=== PATIENT | female | born 1995 | race Caucasian/White ===

== ENCOUNTER 2019-12-02 22:57 | Emergency (ER) | payer SELFPAY ==
[2019-12-02 23:00] VITALS: BP 182/112; PULSE 70; RESP 18; TEMP 36.5; O2SAT 99; BMI 37.6
--- NOTE | 2019-12-02 23:06 | ECG_ITS ---
Measurements Intervals [place] Rate: 80 P: 46 NV: 148 QRS: -9 QRSD: 113 T: 16 QT: 366 QTc: 423 SINUS RHYTHM WITH SINUS ARRHYTHMIA LOW QRS VOLTAGE IN PRECORDIAL LEADS [QRS DEFLECTION < 1.0 mV IN CHEST LEADS] INCOMPLETE RIGHT BUNDLE BRANCH BLOCK [90+ ms QRS DURATION, TERMINAL R IN V1/V2, 4 MODERATE VOLTAGE CRITERIA FOR LVH, CONSIDER NORMAL VARIANT [MEETS CRITERIA IN ONE ONE OF: R(aVL), S(V1), R(V5), R(V5/V6)+S(V1)] POSSIBLE ANTEROSEPTAL MYOCARDIAL INFARCTION , OF INDETERMINATE AGE [30 ms Q WAVE Compared to ECG 04/28/2017 19:25:50 Myocardial infarct finding now present Electronically Signed On 12-03-2019 22:15:43 GROCERY DELIVERER by Talya Chaves M.D. [id number]
--- NOTE | 2019-12-02 23:08 | ED_ITS ---
Entered by Sabrina lEy, acting as scribe for Leonardo German MD Dec 02, 2019 22:57 HPI - Dizziness General: Chief Complaint: Dizziness Stated Complaint: dizziness Time Seen by Provider: 12/02/19 23:07 Source: patient Mode of arrival: ambulatory Limitations: no limitations History of Present Illness: HPI Narrative: 24 yo f came to the er for dizziness and a syncope episode. Onset was today. Pt states that she has some mild abd pain as well. Pt said that she is still feeling dizzy. She said that she started feeling dizzy and then passed out. MD elicited complaint: dizziness and other (syncope and abd pain) Onset (ago): day(s) (today) Timing: sudden onset Severity: mild Description: lightheadedness History of similar symptoms: No Exacerbating factors: nothing Relieving factors: nothing Associated symptoms: Reports no associated symptoms and cough; Denies chest pain or chills Associated neuro symptoms: Reports no associated symptoms Review of Systems General: Reports: other (negative unless marked) Const: Denies: fever, chills, body aches or change in appetite Eyes: Denies: blurry vision or eye discomfort ENMT: Denies: throat pain or dental pain Card: Denies: chest pain Resp: Reports: non-productive cough GI: Reports: abdominal pain : Denies: painful urination Musc: Denies: neck pain or back pain Skin/Breast: Denies: rash Neuro: Reports: dizziness Psych: Denies: depression Luke/Lymph: Denies: easy bruising All/Imm: Denies: hives PFSH ED PFSH: Statuses (acute, chronic, etc) shown below reflect problem list status as previously entered and may not be historically accurate Social History Smoking and tobacco status: current every day smoker Physical Exam Const: COMMON NORMALS: no apparent distress, oriented x3 and healthy appearing HENMT: COMMON NORMALS: normocephalic and head/scalp atraumatic HEAD & SCALP: normocephalic and atraumatic Eye: COMMON NORMALS: PERRL and EOMs intact bilaterally PUPIL: Yes PERRL Neck/C-Spine: COMMON NORMALS: full ROM and supple Chest: COMMONS NORMALS: inspection of chest normal and palpation of chest normal Resp: COMMON NORMALS: normal respiratory effort, no retractions, no use of accessory muscles and clear to auscultation bilaterally AUSCULTATION: clear to auscultation bilaterally Cardio: COMMON NORMALS: regular rate, regular rhythm and no murmurs RATE: regular rate RHYTHM: regular rhythm GI: COMMON NORMALS: normal to inspection, nondistended, normoactive bowel sounds, soft to palpation, non-tender and no masses PALPATION: Yes soft Extremity: COMMON NORMALS: normal to inspection and full ROM OTHER: renderness over left shoulder and pain with movement Neuro: COMMON NORMALS: oriented x3, moves all extremities and no focal motor deficits Psych: COMMON NORMALS: mental status grossly normal, thought process normal and cooperative THOUGHT PROCESS: normal thought process Skin: COMMON NORMALS: no rashes or lesions noted and no wounds GENERAL SKIN EXAM: no rashes or lesions noted Course Vital Signs: Vital signs: Vital Signs Temperature 97.7 F 12/02/19 23:00 Pulse Rate 81 12/03/19 02:26 Respiratory Rate 16 12/03/19 02:26 Blood Pressure 135/78 12/03/19 02:26 Pulse Oximetry 100 12/03/19 02:26 MDM - Dizziness MDM Narrative: Medical decision making narrative: Patient presents here with multiple complaints. Patient is shoulder pain along with chest pain and abdominal pain.. Patient also has high blood pressure. Her blood pressure here is improved. CT scan of her abdomen is negative. Initial and repeat troponin are negative as well. She has no signs of pulmonary embolism. Patient is stable for discharge and will start HCTZ. She is to follow-up with her primary care doctor in 3 to 5 days return if worsening. Lab Data: Labs: Lab Results 12/02/19 12/02/19 12/02/19 Range/Units 23:26 23:26 23:26 WBC 7.8 (4.0-10.0) 10^3/ uL RBC 4.22 (4.1-5.3) 10^6/u L Hgb 10.8 L (11.5-15.3) g/dL Hct 34.6 L (37.0-47.0) % MCV 82.0 (81-99) fL MCH 25.6 L (28.0-34.0) pg MCHC 31.2 (30.0-36.0) g/dL RDW 12.6 (12.1-15.1) % Plt Count 340 (130-400) 10^3/c mm MPV 9.7 (7.4-10.4) fL Neut % (Auto) 65.8 % Lymph % (Auto) 27.5 % [place] % (Auto) 5.2 % Eos % (Auto) 1.3 % Baso % (Auto) 0.1 % Neut # (Auto) 5.2 (1.8-7.7) 10^3/u L Lymph # (Auto) 2.2 (0.8-4.8) 10^3/u L [place] # (Auto) 0.4 (0.2-0.9) 10^3/u L Eos # (Auto) 0.1 (0.0-0.8) 10^3/u L Baso # (Auto) 0.0 (0.0-0.1) 10^3/u L Nucleated RBC % (a uto) 0 % Nucleated RBCs # 0.0 /100WBC Sodium 137 (136-145) mmol/L Potassium 3.7 (3.5-5.1) mmol/L Chloride 102 (98-107) mmol/L Carbon Dioxide 24 (22-29) mmol/L Anion Gap 14.7 (5-19) BUN 12 (6-20) mg/dL Creatinine 0.8 (0.5-0.9) mg/dL GFR Calculation 86.7 L (90-130) mL/min Glucose 96 (65-115) mg/dL Calculated Osmolal ity 280 L (285-295) mOsm/k g Calcium 9.3 (8.5-10.5) mg/dL Troponin T Baselin e 6 (0-10) ng/mL Troponin T 120 Min [place] (0-10) ng/mL Delta Troponin T (0-10) ABS# TSH 1.72 (0.27-4.20) uIU/ mL HCG, Qual (Negative) 12/02/19 12/03/19 Range/Units 23:55 01:03 WBC (4.0-10.0) 10^3/ uL RBC (4.1-5.3) 10^6/u L Hgb (11.5-15.3) g/dL Hct (37.0-47.0) % MCV (81-99) fL MCH (28.0-34.0) pg MCHC (30.0-36.0) g/dL RDW (12.1-15.1) % Plt Count (130-400) 10^3/c mm MPV (7.4-10.4) fL Neut % (Auto) % Lymph % (Auto) % [place] % (Auto) % Eos % (Auto) % Baso % (Auto) % Neut # (Auto) (1.8-7.7) 10^3/u L Lymph # (Auto) (0.8-4.8) 10^3/u L [place] # (Auto) (0.2-0.9) 10^3/u L Eos # (Auto) (0.0-0.8) 10^3/u L Baso # (Auto) (0.0-0.1) 10^3/u L Nucleated RBC % (a uto) % Nucleated RBCs # /100WBC Sodium (136-145) mmol/L Potassium (3.5-5.1) mmol/L Chloride (98-107) mmol/L Carbon Dioxide (22-29) mmol/L Anion Gap (5-19) BUN (6-20) mg/dL Creatinine (0.5-0.9) mg/dL GFR Calculation (90-130) mL/min Glucose (65-115) mg/dL Calculated Osmolal ity (285-295) mOsm/k g Calcium (8.5-10.5) mg/dL Troponin T Baselin e (0-10) ng/mL Troponin T 120 Min [place] 6.00 (0-10) ng/mL Delta Troponin T 0 (0-10) ABS# TSH (0.27-4.20) uIU/ mL HCG, Qual Negative (Negative) Imaging Data^: xr left shoulder: Attestation: I personally reviewed and interpreted this imaging study as follows: My impression: no acute abnormality EKG Data^: EKG 1: Attestation: I personally reviewed and interpreted this EKG as follows: EKG interpretation date: 12/02/19 EKG interpretation time: 23:25 Interpretation: nsr hr [address] or t wave abnormalities qrs 113 [id number] EKG 2: Attestation: I personally reviewed and interpreted this EKG as follows: EKG interpretation date: 12/03/19 EKG interpretation time: 00:59 Interpretation: nsr hr [address] or t wave abnormalities qrs 118 qtc 410 Discharge Plan Discharge Patient Disposition: Home, Self-Care Clinical Impression: Dizziness Hypertension Qualifiers: Hypertension type: essential hypertension Qualified Code(s): I10 - Essential (primary) hypertension Abdominal pain Qualifiers: Abdominal location: generalized Qualified Code(s): R10.84 - Generalized abdominal pain Condition: Stable Prescriptions: New hydrochlorothiazide 25 mg tablet 25 mg PO DAILY Qty: 30 RF: 1 No Action No Known Home Medications RF: 0 Discharge Orders: Discharge Order (Routine); Ordered 12/03/19 Ordered By: Leonardo German Discharge Diet: Advance as tolerated Discharge Activity: Resume usual activity Patient Instructions: Abdominal Pain (ED), Hypertension (ED) Discharge Date/Time: 12/03/19 02:26 Coding Level of Care Code ED Pediatric Urologist for Chg Fwd Exam Problem Focused The documentation recorded by the Solis morse Stephanie Lyn, accurately reflects the service I personally performed and the decisions made by Maxi laguna Korby, MD Dec 02, 2019 22:57
--- NOTE | 2019-12-02 23:12 | XR_ITS ---
WS: [id number] Left shoulder, 3 views, 12/02/2019 Clinical Data: pain Comparison: None. Findings: There is an anterior subcoracoid dislocation of the left humeral head onto the scapula. No fractures are seen. The AC joints intact. There is a monitor lead over the left chest XR/XR shoulder LT min 2V* [id number] Impression: Anterior subcoracoid dislocation of left humeral head.
[2019-12-02 23:20] VITALS: RESP 16
[2019-12-02] MEDS: morphine 4 mg/mL SDV 1 mL IVP (23:20)
[2019-12-02 23:23] VITALS: PULSE 87; RESP 16; O2SAT 99
--- NOTE | 2019-12-02 23:25 | PC.NURSE ---
PATIENT STATES THAT AROUND 1999 TONIGHT SHE STARTED FEELING LIGHTHEADED. PATIENT STATES HER LEFT SHOULDER AND LEFT LOWER QUADRANT HURT 05/05.
[2019-12-02 23:33] LABS: Basophils % 0.1 %; Eosinophils # 0.1 10^3/uL (0.0-0.8); Eosinophils % 1.3 %; Hematocrit 34.6 % (37.0-47.0); Hemoglobin 10.8 g/dL (11.5-15.3); Lymphocytes # 2.2 10^3/uL (0.8-4.8); Lymphocytes % 27.5 %; Mean Corpuscular HGB Conc 31.2 g/dL (30.0-36.0); Mean Corpuscular Hemoglobin 25.6 pg (28.0-34.0); Mean Platelet Volume 9.7 fL (7.4-10.4); Monocytes # 0.4 10^3/uL (0.2-0.9); Monocytes % 5.2 %; Neutrophils # 5.2 10^3/uL (1.8-7.7); Neutrophils % 65.8 %; Nucleated Red Blood Cells % 0 %; Platelet Count 340 10^3/cmm (130-400); Red Blood Count 4.22 10^6/uL (4.1-5.3); Red Cell Distribution Width 12.6 % (12.1-15.1); White Blood Count 7.8 10^3/uL (4.0-10.0)
[2019-12-02 23:50] LABS: Troponin(5th) Baseline 6 ng/mL (0-10)
[2019-12-02 23:58] LABS: Anion Gap 14.7 (5-19); Blood Urea Nitrogen 12 mg/dL (6-20); Calcium 9.3 mg/dL (8.5-10.5); Carbon Dioxide 24 mmol/L (22-29); Chloride 102 mmol/L (98-107); Glomerular Filtration Rate 86.7 mL/min (90-130); Glucose 96 mg/dL (65-115); Osmolality Calculated 280 mOsm/kg (285-295); Potassium 3.7 mmol/L (3.5-5.1); Sodium 137 mmol/L (136-145); Thyroid Stimulating Hormone 1.72 uIU/mL (0.27-4.20)
--- NOTE | 2019-12-03 00:03 | PC.NURSE ---
XRAY IN ROOM
[2019-12-03] MEDS: hyDRALAzine 20 mg/mL INJ 1 mL 10 MG IVP (00:09)
[2019-12-03 00:13] LABS: HCG Qualitative Urine. Negative (Negative)
[2019-12-03 00:25] VITALS: BP 155/99; PULSE 98; O2SAT 99
--- NOTE | 2019-12-03 00:34 | CTR_ITS ---
PROCEDURE INFORMATION: Exam: CT Abdomen And Pelvis With Contrast Exam date and time: 12/03/2019 1:31 AM Age: 24 years old Clinical indication: Abdominal pain; Acute; Additional info: Abd pain TECHNIQUE: Imaging protocol: Computed tomography of the abdomen and pelvis with intravenous contrast. Total DLP: 1740.83 mGy-cm Radiation optimization: All CT scans at this facility use at least one of these dose optimization techniques: automated exposure control; mA and/or kV adjustment per patient size (includes targeted exams where dose is matched to clinical indication); or iterative reconstruction. Contrast material: OMNI 300; Contrast volume: 95 ml; Contrast route: 20G; COMPARISON: CT abdomen pelvis w con* [id number] 06/24/2016 4:14 PM FINDINGS: Liver: Normal. No mass. Gallbladder and bile ducts: Normal. No calcified stones. No ductal dilation. Pancreas: Normal. No ductal dilation. Spleen: Normal. No splenomegaly. Adrenals: Normal. No mass. Kidneys and ureters: Normal. No hydronephrosis. Stomach and bowel: Nondilated fluid-filled loops of small bowel may represent mild ileus. Appendix: The appendix is visualized and is normal in configuration. Intraperitoneal space: Unremarkable. No free air. No significant fluid collection. Vasculature: Unremarkable. No abdominal aortic aneurysm. Lymph nodes: Unremarkable. No enlarged lymph nodes. Bladder: Unremarkable as visualized. Reproductive: The uterus is retroflexed. Bones/joints: Unremarkable. No acute fracture. Soft tissues: Unremarkable. CT/CT abdomen pelvis w con* [id number] IMPRESSION: 1. There are no acute abdominal findings 2. Nondilated fluid-filled loops of small bowel could represent mild ileus 3. Normal appendix Radiation Dose CTDIVOL = (mGy): DLP = 1740.83 (mGy-cm)
[2019-12-03 00:42] VITALS: BP 153/97; PULSE 94; RESP 16; O2SAT 98
--- NOTE | 2019-12-03 01:06 | ECG_ITS ---
Measurements Intervals [place] Rate: 82 P: 47 IN: 144 QRS: -5 QRSD: 118 T: 19 QT: 372 QTc: 435 SINUS RHYTHM INCOMPLETE RIGHT BUNDLE BRANCH BLOCK [90+ ms QRS DURATION, TERMINAL R IN V1/V2, 40+ ms S IN I/aVL/V4/V5/V6] MINIMAL VOLTAGE CRITERIA FOR LVH, CONSIDER NORMAL VARIANT [MEETS CRITERIA IN ONE OF: R(aVL), S(V1), R(V5), R(V5/V6)+S(V1)] POSSIBLE ANTERIOR MYOCARDIAL INFARCTION , PROBABLY OLD [30 ms Q WAVE IN V3/V4, OR R < 0.2 mV IN V4] Compared to ECG 04/28/2017 19:25:50 Myocardial infarct finding now present Sinus arrhythmia no longer present Electronically Signed On 12-03-2019 22:18:27 REORDERING CLERK by Talya Chaves M.D. [id number]
--- NOTE | 2019-12-03 01:25 | PC.NURSE ---
patient to CT
[2019-12-03 01:34] LABS: Troponin 5 2HR Delta 0 ABS# (0-10)
--- NOTE | 2019-12-03 01:40 | PC.NURSE ---
patient back from CT
[2019-12-03 01:44] VITALS: RESP 16; O2SAT 99
[2019-12-03] MEDS: HYDROmorphone 1 mg/mL INJ 1 mL IVP (01:44)
[2019-12-03] MEDS: ondansetron 2 mg/ML SDV 2 mL 4 MG IVP (01:45)
[2019-12-03] MEDS: iohexol 300 mg/mL 100 mL Btl IV (01:46)
[2019-12-03 01:48] VITALS: BP 144/96; PULSE 92; RESP 16; O2SAT 99
[2019-12-03 02:26] VITALS: BP 135/78; PULSE 81; RESP 16; O2SAT 100
== END 2019-12-03 02:26 | disposition home or self-care (01) ==
PROVIDERS: Emergency Provider Emergency Medicine
DX: R42 Dizziness and giddiness (principal); I10 Essential (primary) hypertension; R10.84 Generalized abdominal pain; F17.210 Nicotine dependence, cigarettes, uncomplicated
CPT/HCPCS: 73030; 74177; 80048; 81025; 84443; 84484; 85025; 93005; 96374; 96375; 96376; 99283; 99284; J0360; J1170; J2270; J2405; Q9967

== ENCOUNTER → 2020-01-19 14:47 | Outpatient (BNVA) | payer MEDICAID, SELFPAY | PROVIDERS: Visit Provider Nurse Practitioner Family | DX: R05 Cough (principal) | CPT/HCPCS: 87400 ==

== ENCOUNTER → 2020-02-28 15:22 | Outpatient (BNVA) | payer MEDICAID, SELFPAY | PROVIDERS: Visit Provider Nurse Practitioner Family | DX: M25.572 Pain in left ankle and joints of left foot (principal) | CPT/HCPCS: 73610 ==

== ENCOUNTER → 2021-08-17 09:11 | Outpatient (BNVA) | payer MEDICAID, SELFPAY | PROVIDERS: Visit Provider Obstetrics & Gynecology | DX: R10.30 Lower abdominal pain, unspecified (principal); N89.8 Other specified noninflammatory disorders of vagina | CPT/HCPCS: 83036; 83525; 84443; 85025; 87070; 87077; 87184; 87205; 87481; 87491; 87512; 87591; 87661; 87798; 87799 ==

== ENCOUNTER → 2021-08-27 11:03 | Outpatient (BNVA) | payer MEDICAID, SELFPAY | PROVIDERS: PCP Nurse Practitioner Family; Visit Provider Obstetrics & Gynecology | DX: R10.2 Pelvic and perineal pain (principal); N92.6 Irregular menstruation, unspecified | CPT/HCPCS: 76830 ==

== ENCOUNTER → 2021-10-29 09:15 | Outpatient (BNVA) | payer MEDICAID, SELFPAY | PROVIDERS: PCP Nurse Practitioner Family; Visit Provider Nurse Practitioner Family | DX: F41.8 Other specified anxiety disorders (principal); E28.2 Polycystic ovarian syndrome; E88.81 Metabolic syndrome and other insulin resistance; I10 Essential (primary) hypertension; R00.2 Palpitations; R53.83 Other fatigue | CPT/HCPCS: 80053; 80061; 82306 ==

== ENCOUNTER 2021-11-24 13:00 | Emergency (ER) | payer MEDICAID, SELFPAY ==
[2021-11-24 13:25] VITALS: BP 152/102; PULSE 69; RESP 16; TEMP 36.7; O2SAT 100
--- NOTE | 2021-11-24 13:44 | XRR_ITS ---
PROCEDURE INFORMATION: Exam: XR Chest Exam date and time: 11/24/2021 1:44 PM Age: 26 years old Clinical indication: Angina pectoris; Patient HX: Chest pain x 1 day; Additional info: Cp TECHNIQUE: Imaging protocol: XR of the chest. Views: 1 view. COMPARISON: CR Chest 1 [place] [id number] 04/28/2017 7:46 PM FINDINGS: Lungs: The lungs are clear. Pleural spaces: Unremarkable. No pleural effusion. No pneumothorax. Heart/Mediastinum: Unremarkable. No cardiomegaly. Bones/joints: Unremarkable. XR/XR chest 1V portable [id number] IMPRESSION: No acute cardiopulmonary abnormality.
--- NOTE | 2021-11-24 13:44 | ECG_ITS ---
[facility] Test Date: 2021-11-24 Pat Name: Kathleen Camilo Department: Room: Gender: Female Staff Pharmacist Hospital: : 1995 Requested By: Chapo Tang Order Number: [id number] Barbra MD: LIZA YUAN Measurements Intervals [place] Rate: 63 P: 44 MD: 139 QRS: 5 QRSD: 106 T: 37 QT: 393 QTc: 403 Interpretive Statements SINUS RHYTHM POSSIBLE RIGHT VENTRICULAR CONDUCTION DELAY [RSR (QR) IN V1/V2] Compared to ECG 12/03/2019 00:59:27 Incomplete right bundle-branch block no longer present Myocardial infarct finding no longer present Electronically Signed On 11-24-2021 17:44:36 ER TECH by LIZA YUAN [id number] f
[2021-11-24 15:45] LABS: Basophils % 0.2 %; Hematocrit 38.6 % (37.0-47.0); Hemoglobin 11.9 g/dL (11.5-15.3); Lymphocytes # 1.3 10^3/uL (0.8-4.8); Mean Corpuscular HGB Conc 30.8 g/dL (30.0-36.0); Mean Corpuscular Hemoglobin 26.8 pg (28.0-34.0); Mean Corpuscular Volume 86.9 fl (81-99); Mean Platelet Volume 9.7 fL (7.4-10.4); Monocytes # 0.3 10^3/uL (0.2-0.9); Monocytes % 4.2 %; Neutrophils % 75.3 %; Nucleated Red Blood Cells % 0 %; Platelet Count 365 10^3/cmm (130-400); Red Blood Count 4.44 10^6/uL (4.1-5.3); White Blood Count 6.6 10^3/uL (4.0-10.0)
[2021-11-24 15:58] LABS: INR 0.94 (0.8-1.2)
[2021-11-24 16:08] LABS: Alanine Aminotransferase 9 U/L (0-33); Albumin Level 4.7 g/dL (3.5-5.2); Alkaline Phosphatase 86 IU/L (35-105); Anion Gap 17.7 (5-19); Aspartate Amino Transferase 5 U/L (0-32); Blood Urea Nitrogen 7 mg/dL (6-20); Calcium 8.8 mg/dL (8.5-10.5); Carbon Dioxide 22 mmol/L (22-29); Chloride 103 mmol/L (98-107); Globulin 3.1 g/dL (1.3-4.6); Glucose 83 mg/dL (65-115); Osmolality Calculated 285 mOsm/kg (285-295); Potassium 3.7 mmol/L (3.5-5.1); Sodium 139 mmol/L (136-145); Total Bilirubin 0.3 mg/dL (0.15-1.2); Total Protein 7.8 g/dL (6.6-8.7)
[2021-11-24 16:13] LABS: Troponin(5th) Baseline 6 ng/L (0-10)
[2021-11-24 16:29] LABS: D Dimer 0.51 ug/mIFEU (0-0.59)
--- NOTE | 2021-11-24 16:30 | ED_ITS ---
HPI - General Adult General: Chief complaint: Chest Pain Stated complaint: Chest Pains Time Seen by Provider: 11/24/21 15:09 History of Present Illness: CC: Chest Pain HPI: This is a [26] yo patient w/ no PMH presenting to the ED complaining of acute sudden onset intermittent sharp chest pain since this AM WITHOUT radiation to the back or shoulders. No associated with shortness of breath, chest pain or dyspnea on exertion. Pain is not tearing in nature and does not radiate to the back. Pain not associated with vomiting or PO intake. Denies any recent sympathomimetic drug use. Patient denies any cough. Denies palpitations, dysphagia, diaphoresis, radiation of pain to bilateral arms, jaw. Denies F/N/V/D. Patient denies any recent immobility, surgery, unilateral leg swelling, or prior PE. Patient denies any orthopnea. Onset: earlier today Duration: ongoing for the last 6 hrs Location: home Severity: mild/moderate Associated symptoms: Reports chest pain; Deny dyspnea, nausea, rash, palpitations or vomiting Review of Systems Const: Denies: fever(s) or chills Eyes: Denies: change in vision ENMT: Denies: mouth pain Card: Reports: chest pain; Denies: palpitations Resp: Denies: dyspnea or non-productive cough GI: Denies: abdominal pain, nausea, vomiting or diarrhea : Denies: dysuria Musc: Denies: extremity pain Skin/Breast: Denies: rash or new lesions Neuro: Denies: weakness in extremities Psych: Reports: other (Normal mood) Luke/Lymph: Denies: easy bruising PFS ED PFSH: Medical History Depression with anxiety Hypertension Metabolic syndrome PCOS (polycystic ovarian syndrome) Surgical History H/O laparoscopy Diagnostic laparoscopy by Dr. Ho on 07/01/18 H/O laparoscopy H/O wrist surgery tendon surgery to left wrist-2018 H/O wrist surgery History of surgical removal of ganglion cyst 11/2018--[facility] Family History Grandfather Cancer Mother Hypertension Social History Smoking and tobacco status: current every day smoker Second hand smoke exposure: Yes Alcohol intake: current Alcohol intake frequency: holidays/special occasions only Caregiver/support person: Yes (family) Lives independently: Yes Household members: children Marital status: Single service: No Current occupational status: employed History of recent travel: No Current gender identity: Female Special beth needs: No Physical Exam Const: COMMON NORMALS: alert HENMT: COMMON NORMALS: atraumatic HEAD & SCALP: atraumatic MOUTH: moist mucous membranes not abnormal Eye: COMMON NORMALS: EOMs intact bilaterally and conjunctivae normal CONJUNCTIVA: Yes conjunctivae normal Neck/C-Spine: COMMON NORMALS: full ROM and supple Resp: COMMON NORMALS: normal respiratory effort and clear to auscultation bilaterally AUSCULTATION: clear to auscultation bilaterally Cardio: COMMON NORMALS: regular rate RATE: regular rate GI: COMMON NORMALS: Soft to palpation and non-tender PALPATION: Yes Soft to palpation Extremity: COMMON NORMALS: full ROM Neuro: SENSORIUM/ORIENTATION: Yes alert MOTOR EXAM: No Abnormal motor strength present and Other motor observations present (no focal motor deficits) Psych: COMMON NORMALS: speech normal SPEECH: Yes normal speech MOOD & AFFECT: Yes euthymic mood Course Vital Signs: Vital signs: Vital Signs Temperature 98.0 F 11/24/21 13:25 Pulse Rate 69 11/24/21 13:25 Respiratory Rate 16 11/24/21 13:25 Blood Pressure 152/102 11/24/21 13:25 Pulse Oximetry 100 11/24/21 13:25 MDM - General Adult Medical Decision Making [26]yo patient w/ no PMH presenting to the ED with evaluation of new onset sharp chest pain lasting since this AM HDS, pulse 2+ radially bilaterally, no signs of fluid overload, AAOx3, neuro exam intact. Given History and Exam today I have no suspicion for ACS, Pneumothorax, Pneumonia, Pulmonary Embolus, Tamponade, Aortic Dissection or other emergent problems as a cause for this presentation. Workup: ECG, CXR, CBC, BMP, Troponin Interventions: Tylenol and toradol for pain Findings: ECG: No overt evidence of STEMI, hyperacute T waves, localizable STD or T wave inversions. No evidence of Brugada?s sign, delta wave, epsilon wave, significantly prolonged QTc, or malignant arrhythmia. No Q waves. Other Labs unremarkable for emergent problems. CXR: Without PTX, PNA, or widened mediastinum Last Stress Test: never Last Heart Catheterization: never HEART Score: 0 Dimer wnl [5:00pm] On reassessment, the patient is HDS, no complaints of persistent chest pain in the ED after evaluation. ECG is non-ischemic. Workup today is unremarkable. Doubt ACS/PE or other emergent causes of chest pain. Doubt ACS/PE or other emergent causes of chest pain. No suspicion for aortic dissection given no widened mediastinum, 2+ upper extremity pulses, or tearing pain. No suspicion for PE given no pleuritic chest pain, recent immobilization or surgery hemoptysis, or other VTE risk factors. EKG is non-ischemic. XR normal. Rx: Tylenol PRN pain Disposition: Discharge. Strict return precautions discussed with the patient with full understanding. Advised patient to follow up promptly with a primary care provider in 24-48 hrs if the patient has persistent symptoms. Given return instructions for any crushing/tearing chest pain, focal weakness, syncope or any new or concerning issues. Lab Data : 11/24/21 15:38 11/24/21 15:38 Radiology Impressions Chest X-Ray 11/24/21 13:44 IMPRESSION: No acute cardiopulmonary abnormality. Laboratory Results WBC 6.6 10^3/uL (4.0-10.0) 11/24/21 15:38 RBC 4.44 10^6/uL (4.1-5.3) 11/24/21 15:38 Hgb 11.9 g/dL (11.5-15.3) 11/24/21 15:38 Hct 38.6 % (37.0-47.0) 11/24/21 15:38 MCV 86.9 fl (81-99) 11/24/21 15:38 MCH 26.8 pg (28.0-34.0) L 11/24/21 15:38 MCHC 30.8 g/dL (30.0-36.0) 11/24/21 15:38 RDW 13.0 % (12.1-15.1) 11/24/21 15:38 Plt Count 365 10^3/cmm (130-400) 11/24/21 15:38 MPV 9.7 fL (7.4-10.4) 11/24/21 15:38 Neut % (Auto) 75.3 % 11/24/21 15:38 Lymph % (Auto) 20.0 % 11/24/21 15:38 [place] % (Auto) 4.2 % 11/24/21 15:38 Eos % (Auto) 0.0 % 11/24/21 15:38 Baso % (Auto) 0.2 % 11/24/21 15:38 Neut # (Auto) 5.00 10^3/uL (1.8-7.7) 11/24/21 15:38 Lymph # (Auto) 1.3 10^3/uL (0.8-4.8) 11/24/21 15:38 [place] # (Auto) 0.3 10^3/uL (0.2-0.9) 11/24/21 15:38 Eos # (Auto) 0.0 10^3/uL (0.0-0.8) 11/24/21 15:38 Baso # (Auto) 0.0 10^3/uL (0.0-0.1) 11/24/21 15:38 Nucleated RBC % (auto) 0 % 11/24/21 15:38 Nucleated RBCs # 0.0 /100WBC 11/24/21 15:38 PT 12.80 SECONDS (12.1-14.9) 11/24/21 15:38 INR 0.94 (0.8-1.2) 11/24/21 15:38 D-Dimer 0.51 ug/mIFEU (0-0.59) 11/24/21 15:38 Sodium 139 mmol/L (136-145) 11/24/21 15:38 Potassium 3.7 mmol/L (3.5-5.1) 11/24/21 15:38 Chloride 103 mmol/L (98-107) 11/24/21 15:38 Carbon Dioxide 22 mmol/L (22-29) 11/24/21 15:38 Anion Gap 17.7 (5-19) 11/24/21 15:38 BUN 7 mg/dL (6-20) 11/24/21 15:38 Creatinine 0.6 mg/dL (0.5-0.9) 11/24/21 15:38 GFR Calculation 119.0 mL/min (90-130) 11/24/21 15:38 Glucose 83 mg/dL (65-115) 11/24/21 15:38 Calculated Osmolality 285 mOsm/kg (285-295) 11/24/21 15:38 Calcium 8.8 mg/dL (8.5-10.5) 11/24/21 15:38 Total Bilirubin 0.3 mg/dL (0.15-1.2) 11/24/21 15:38 AST 5 U/L (0-32) 11/24/21 15:38 ALT 9 U/L (0-33) 11/24/21 15:38 Alkaline Phosphatase 86 IU/L (35-105) 11/24/21 15:38 Troponin T Baseline 6 ng/L (0-10) 11/24/21 15:38 Total Protein 7.8 g/dL (6.6-8.7) 11/24/21 15:38 Albumin 4.7 g/dL (3.5-5.2) 11/24/21 15:38 Globulin 3.1 g/dL (1.3-4.6) 11/24/21 15:38 Imaging Data Other Imaging: Radiologist's impression: [address] [address] XRay Report Signed Patient: Kathleen Camilo Unit #: [id number] : 1995 Age/Sex: 26 / F ADM Date: 11/24/21 Loc: ER Room/Bed: Attending Dr: Ordering Provider/Ordering MD: Gianluca Tang , [facility] Date of Service: 11/24/21 Procedure(s): XR chest 1V portable [id number] Accession Number(s): [id number] Report Number: [id number] PROCEDURE INFORMATION: Exam: XR Chest Exam date and time: 11/24/2021 1:44 PM Age: 26 years old Clinical indication: Angina pectoris; Patient HX: Chest pain x 1 day; Additional info: Cp TECHNIQUE: Imaging protocol: XR of the chest. Views: 1 view. COMPARISON: CR Chest 1 [place] [id number] 04/28/2017 7:46 PM FINDINGS: Lungs: The lungs are clear. Pleural spaces: Unremarkable. No pleural effusion. No pneumothorax. Heart/Mediastinum: Unremarkable. No cardiomegaly. Bones/joints: Unremarkable. XR/XR chest 1V portable [id number] IMPRESSION:? No acute cardiopulmonary abnormality. ? Dictated By: Arvin Clark MD Signed By: Arvin Clark MD Signed Date/Time: 11/24/21 1619 DD/ 1344 Discharge Plan Discharge Patient Disposition: Home Clinical Impression: Chest pain Condition: Stable Prescriptions: New acetaminophen 500 mg tablet 500 mg PO Q6H PRN (Reason: pain) 5 Days Qty: 20 0RF No Action ketorolac 10 mg tablet 10 mg PO Q6H PRN0RF doxycycline hyclate 100 mg tablet 100 mg PO BID Qty: 28 0RF venlafaxine 75 mg tablet 75 mg PO DAILY 30 Days Qty: 30 0RF dicyclomine 20 mg tablet 20 mg PO TID Qty: 90 6RF amoxicillin-pot clavulanate [Augmentin] 875-125 mg tablet 1 tab PO BID Qty: 20 0RF cholecalciferol (vitamin D3) 125 mcg (5,000 unit) capsule 125 mcg PO DAILY 90 Days Qty: 90 1RF Discharge Orders: Discharge ED (Routine); Ordered 11/24/21 Ordered By: Danelle Dawson Referrals: Yudith Quezada APN [Primary Care Provider] - Discharge Diet: Advance as tolerated Discharge Activity: Increase activity as tolerated Patient Instructions: Chest Pain (ED) Activity Restrictions/Additional Instructions: Come back to the emergency room if your chest pain worsens, have any fever or chills, worsening shortness of breath, worsening exertional lightheadedness, or any new or concerning complaints. Coding Level of Care Code ED Health Professional for Carlos Murray Exam Comprehensive
[2021-11-24 16:51] VITALS: BP 136/86; PULSE 76; RESP 16; O2SAT 100
[2021-11-24] MEDS: acetaminophen 500 mg Tablet PO (16:51)
[2021-11-24] MEDS: ketorolac 30 mg/mL INJ IVP (16:51)
== END 2021-11-24 16:52 | disposition home or self-care (01) ==
PROVIDERS: Nurse Practitioner Family; Emergency Provider Emergency Medicine; PCP Nurse Practitioner Family
DX: R07.9 Chest pain, unspecified (principal); I10 Essential (primary) hypertension; F17.210 Nicotine dependence, cigarettes, uncomplicated
CPT/HCPCS: 36415; 71045; 80053; 84484; 85025; 85378; 85610; 93005; 96374; 99283; J1885

== ENCOUNTER 2022-02-21 13:34 | Outpatient (CLI) | payer MEDICAID, SELFPAY ==
--- NOTE | 2022-02-21 13:46 | XRR_ITS ---
PROCEDURE INFORMATION: Exam: XR Abdomen Exam date and time: 02/21/2022 1:51 PM Age: 26 years old Clinical indication: Abdominal pain; Prior surgery; Surgery type: Hystero; Additional info: Abb pain TECHNIQUE: Imaging protocol: XR of the abdomen. Views: Frontal supine view of the abdomen. 1 View. COMPARISON: CT abdomen pelvis w con* [id number] 12/03/2019 1:46 AM FINDINGS: Gastrointestinal tract: Normal. No bowel dilation. Bones/joints: Unremarkable. XR/XR KUB [id number] IMPRESSION: No acute findings.
--- NOTE | 2022-02-21 13:46 | XRR_ITS ---
PROCEDURE INFORMATION: Exam: XR Lumbosacral Spine Exam date and time: 02/21/2022 1:51 PM Age: 26 years old Clinical indication: Patient HX: History--low back pain; Additional info: Lbp TECHNIQUE: Imaging protocol: XR of the lumbosacral spine. Views: 2 or 3 views. COMPARISON: CT abdomen pelvis w con* [id number] 12/03/2019 1:46 AM FINDINGS: Bones/joints: Normal. No acute fracture. Normal alignment. Soft tissues: Unremarkable. XR/XR lumbar spine 2-3V* [id number] IMPRESSION: No acute findings.
== END 2022-02-21 13:35 | disposition home or self-care (01) ==
LOC: RAD 13:37
PROVIDERS: PCP Nurse Practitioner Family; Visit Provider Nurse Practitioner Family
DX: R10.32 Left lower quadrant pain (principal); R10.9 Unspecified abdominal pain; M54.50 Low back pain, unspecified; G89.29 Other chronic pain
CPT/HCPCS: 72100; 74018

== ENCOUNTER 2022-03-19 08:58 | Emergency (ER) | payer MEDICAID, SELFPAY ==
[2022-03-19 09:01] VITALS: BP 149/109; PULSE 60; RESP 14; TEMP 36.8; O2SAT 99; BMI 36.8
--- NOTE | 2022-03-19 09:29 | W.ED.NEUROSD ---
HPI - Neuro Symptoms/Deficit General: Chief Complaint: Neuro Symptoms/Deficit Stated Complaint: Rt arm numbness Time Seen by Provider: 03/19/22 09:03 PFSH ED PFSH: Medical History Depression with anxiety Hypertension Metabolic syndrome PCOS (polycystic ovarian syndrome) Surgical History H/O laparoscopy Diagnostic laparoscopy by Dr. Ho on 07/01/18 H/O laparoscopy H/O wrist surgery tendon surgery to left wrist-2017 H/O wrist surgery History of surgical removal of ganglion cyst 11/2018--[place] Family History Grandfather Cancer Mother Hypertension Social History Smoking and tobacco status: never smoked Second hand smoke exposure: Yes Alcohol intake: current Alcohol intake frequency: holidays/special occasions only Caregiver/support person: Yes (family) Lives independently: Yes Household members: children Marital status: Single service: No Current occupational status: employed History of recent travel: No Current gender identity: Female Special beth needs: No Course Vital Signs: Vital signs: Vital Signs Temperature 98.2 F 03/19/22 09:01 Pulse Rate 60 03/19/22 09:01 Respiratory Rate 14 03/19/22 09:01 Blood Pressure 149/109 03/19/22 09:01 Pulse Oximetry 99 03/19/22 09:01 Discharge Plan Discharge Condition: Stable Prescriptions: No Action Tylenol Ex Str Rapid Release 500 mg Tablet 500 - 1,000 mg PO Q6H PRN (Reason: Pain) 0RF ibuprofen 200 mg Tablet 200 - 1,000 mg PO Q6H PRN (Reason: Pain) 0RF Referrals: Yudith Quezada APN [Primary Care Provider] - Coding Level of Care Code ED Building Supplies Salesperson Retail for Carlos Murray
[2022-03-19 09:37] VITALS: BP 136/89; PULSE 81; RESP 18; O2SAT 96
[2022-03-19 09:39] VITALS: BP 139/71; PULSE 88; RESP 18; TEMP 36.6; O2SAT 96
--- NOTE | 2022-03-19 09:54 | XR_ITS ---
WS: [id number] Exam: XR chest 1V portable [id number] Date/Time of Exam: 03/19/2022 9:57 AM Reason For Exam: chest pain Comparison 11/24/2021. Findings: The lungs are clear and fully expanded. Costophrenic angles are sharp. No infiltrates. Bronchovascula r relief appears normal. Cardiac silhouette is unremarkable. Bony elements are intact. XR/XR chest 1V portable [id number] IMPRESSION: Unremarkable chest radiograph.
--- NOTE | 2022-03-19 09:55 | ECG_ITS ---
[facility] Test Date: 2022-03-19 Pat Name: Kathleen Camilo Department: Room: Gender: Female Airline Attendant: : 1995 Requested By: Zena Landon Order Number: [id number] Barbra MD: Louie Urban M.D. Measurements Intervals [place] Rate: 53 P: 46 MO: 158 QRS: 12 QRSD: 112 T: 18 QT: 435 QTc: 411 Interpretive Statements SINUS BRADYCARDIA WITH SINUS ARRHYTHMIA LOW QRS VOLTAGE IN PRECORDIAL LEADS [QRS DEFLECTION < 1.0 mV IN CHEST LEADS] MODERATE INTRAVENTRICULAR CONDUCTION DELAY [110+ ms QRS DURATION] Compared to ECG 11/24/2021 13:23:56 Low QRS voltage now present Intraventricular conduction delay now present Sinus rhythm no longer present Electronically Signed On 03-19-2022 18:47:00 CDT by Louie Urban M.D. [id number]
--- NOTE | 2022-03-19 09:55 | W.ED.GENADLT ---
HPI - General Adult General: Chief complaint: Neuro Symptoms/Deficit Stated complaint: Rt arm numbness Time Seen by Provider: 03/19/22 09:03 Source: patient Mode of arrival: ambulatory Limitations: no limitations History of Present Illness: Patient is a 26-year-old female who presents to ED today with a complaint of chest pains and right arm numbness. Patient tells me she has been having intermittent chest pains for 1 to 2 weeks. They seem to be present to her substernal chest and come on randomly and last for a few minutes before subsiding on their own. She has not noticed any provoking or alleviating factors to her discomfort. Symptoms do not seem to be related to exertion. She states she sometimes will feel like her heart is racing but states when she checks her pulse it is normal. Patient wonders if her chest pain could be secondary to anxiety as she also has a history of this. She is not having any shortness of breath or difficulty breathing. She has no previous cardiac or pulmonary history. No risk factors for cardiac disease apart from being overweight. Patient also tells me today while at work she began developing right upper extremity numbness. No particular distribution. 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 Both jobs involve quite a bit of repetitive UE movement. Patient states upon arrival numbness has improved. No other neuro complaints such as numbness/tingling to face/legs, slurred speech, visual changes, trouble with gait/balance, weakness, etc. She has not noticed any redness, swelling, coolness to extremity. Onset (ago): unknown (differing chronicity based on complaint) Pain Consistency: other (improving) Relieving factors: none Exacerbating factors: none Associated symptoms: Reports chest pain and palpitations (feeling like heart is racing); Deny confusion, dyspnea, headache(s), malaise, nausea, rash, syncope or vomiting Treatments prior to arrival: none Review of Systems Const: Denies: fever(s), chills, body aches, fatigue or malaise Card: Reports: chest pain and palpitations (feeling like heart is racing); Denies: irregular heart rhythm, edema, swelling of feet/ankles, lightheadedness, syncope, pre-syncope, dyspnea on exertion, orthopnea, leg pain with exertion or acrocyanosis Resp: Denies: dyspnea, productive cough, non-productive cough, wheezing, hemoptysis or chest congestion GI: Denies: abdominal pain, nausea, vomiting or diarrhea : Denies: flank pain or dysuria Musc: Denies: neck pain, back pain, extremity pain, extremity swelling, joint pain, joint swelling, joint redness or joint warmth Skin/Breast: Denies: rash Neuro: Reports: sensory changes (R UE) and dizziness (chronic/intermittent); Denies: headache(s), weakness in extremities, lack of coordination, difficulty walking, frequent falls, confusion, behavioral changes, Slurred speech present, difficulty communicating thoughts or seizure-like activity PFSH ED PFSH: Medical History Depression with anxiety Hypertension Metabolic syndrome PCOS (polycystic ovarian syndrome) Surgical History H/O laparoscopy Diagnostic laparoscopy by Dr. Ho on 07/01/18 H/O laparoscopy H/O wrist surgery tendon surgery to left wrist-2017 H/O wrist surgery History of surgical removal of ganglion cyst 11/2018--[place] Family History Grandfather Cancer Mother Hypertension Social History Smoking and tobacco status: never smoked Second hand smoke exposure: Yes Alcohol intake: current Alcohol intake frequency: holidays/special occasions only Caregiver/support person: Yes (family) Lives independently: Yes Household members: children Marital status: Single service: No Current occupational status: employed History of recent travel: No Current gender identity: Female Special beth needs: No Physical Exam Const: COMMON NORMALS: no acute distress, patient oriented x3, no limitations and alert GENERAL APPEARANCE: cooperative NUTRITIONAL APPEARANCE: overweight ORIENTATION/CONSCIOUSNESS: Yes awake, Yes oriented to person, Yes oriented to place and Yes oriented to time HENMT: COMMON NORMALS: normocephalic and atraumatic HEAD & SCALP: normal to inspection, normocephalic and atraumatic Neck/C-Spine: COMMON NORMALS: no JVD and No carotid bruits GENERAL: Yes normal visual inspection Chest: COMMONS NORMALS: normal inspection of the chest and normal palpation of entire chest wall Resp: COMMON NORMALS: normal respiratory effort and clear to auscultation bilaterally AUSCULTATION: clear to auscultation bilaterally Cardio: COMMON NORMALS: no JVD, regular rate and regular rhythm RATE: regular rate RHYTHM: regular rhythm Extremity: COMMON NORMALS: normal to inspection, full ROM, capillary refill normal, no joint enlargement, no clubbing, cyanosis or edema, no calf tenderness and no pedal edema GENERAL: Yes normal exam except as noted OTHER: no swelling or color/temp changes noted to either UE; radial pulses/cap refill equal bilaterally Neuro: LO COMA SCALE: document GCS findings [place] coma scale eye opening: Spontaneous [place] coma scale verbal response: Orientated [place] coma scale motor response: Obey commands Lo coma scale total score: 15 COMMON NORMALS: patient oriented x3, moves all extremities, no focal motor deficits, no sensory deficits noted and gait normal SENSORIUM/ORIENTATION: Yes alert, Yes oriented to person, Yes oriented to place and Yes oriented to time MOTOR EXAM: 5/5 motor strength present throughout and Pronator motor function not present Skin: COMMON NORMALS: no rashes or lesions noted GENERAL SKIN EXAM: no rashes or lesions noted Course Vital Signs: Vital signs: Vital Signs Temperature 98 F 03/19/22 09:39 Pulse Rate 88 03/19/22 10:05 Respiratory Rate 18 03/19/22 10:05 Blood Pressure 138/94 03/19/22 10:05 Pulse Oximetry 99 03/19/22 10:05 [facility] - General Adult Medical Decision Making Patient here with non-exertional intermittent chest pains over the past 1 to 2 weeks. She has not had any chest pain throughout her ED stay. Work-up including CBC, CMP, EKG, CXR, troponins are all unremarkable. She has a complaint of right upper extremity paresthesias that began while at work today. She states these have improved upon arrival. She has no other neurological complaints. Patient maintains strength and sensory was intact on exam. Extremity is warm to the touch w/o evidence for ischemia. No swelling/redness noted. I don't have any concern at this time for CVA/TIA, DVT, acute arterial occlusion, or other emergent process. DDX (especially given her job/repetitive use of UE) most likely includes neurogenic thoracic outlet syndrome, peripheral nerve syndromes/entrapment, tendonitis, cervical radiculopathy, etc. Will treat with NSAIDS and rest and have patient follow up with primary care as soon as possible. Return to ED precautions given. Lab Data : 03/19/22 10:00 03/19/22 10:00 Radiology Impressions Chest X-Ray 03/19/22 09:54 IMPRESSION: Unremarkable chest radiograph. Laboratory Results WBC 5.4 10^3/uL (4.0-10.0) 03/19/22 10:00 RBC 4.21 10^6/uL (4.1-5.3) 03/19/22 10:00 Hgb 11.3 g/dL (11.5-15.3) L 03/19/22 10:00 Hct 35.3 % (37.0-47.0) L 03/19/22 10:00 MCV 83.8 fl (81-99) 03/19/22 10:00 MCH 26.8 pg (28.0-34.0) L 03/19/22 10:00 MCHC 32.0 g/dL (30.0-36.0) 03/19/22 10:00 RDW 14.7 % (12.1-15.1) 03/19/22 10:00 Plt Count 307 10^3/cmm (130-400) 03/19/22 10:00 MPV 9.6 fL (7.4-10.4) 03/19/22 10:00 Neut % (Auto) 73.7 % 03/19/22 10:00 Lymph % (Auto) 21.5 % 03/19/22 10:00 [place] % (Auto) 3.7 % 03/19/22 10:00 Eos % (Auto) 0.9 % 03/19/22 10:00 Baso % (Auto) 0.0 % 03/19/22 10:00 Neut # (Auto) 3.94 10^3/uL (1.8-7.7) 03/19/22 10:00 Lymph # (Auto) 1.2 10^3/uL (0.8-4.8) 03/19/22 10:00 [place] # (Auto) 0.2 10^3/uL (0.2-0.9) 03/19/22 10:00 Eos # (Auto) 0.1 10^3/uL (0.0-0.8) 03/19/22 10:00 Baso # (Auto) 0.0 10^3/uL (0.0-0.1) 03/19/22 10:00 Nucleated RBC % (auto) 0 % 03/19/22 10:00 Nucleated RBCs # 0.0 /100WBC 03/19/22 10:00 Sodium 140 mmol/L (136-145) 03/19/22 10:00 Potassium 3.4 mmol/L (3.5-5.1) L 03/19/22 10:00 Chloride 105 mmol/L (98-107) 03/19/22 10:00 Carbon Dioxide 26 mmol/L (22-29) 03/19/22 10:00 Anion Gap 12.4 (5-19) 03/19/22 10:00 BUN 8 mg/dL (6-20) 03/19/22 10:00 Creatinine 0.7 mg/dL (0.5-0.9) 03/19/22 10:00 GFR Calculation 99.6 mL/min (90-130) 03/19/22 10:00 Glucose 93 mg/dL (65-115) 03/19/22 10:00 Calculated Osmolality 288 mOsm/kg (285-295) 03/19/22 10:00 Calcium 9.1 mg/dL (8.5-10.5) 03/19/22 10:00 Total Bilirubin 0.3 mg/dL (0.15-1.2) 03/19/22 10:00 AST 5 U/L (0-32) 03/19/22 10:00 ALT 7 U/L (0-33) 03/19/22 10:00 Alkaline Phosphatase 73 IU/L (35-105) 03/19/22 10:00 Troponin T Baseline 6 ng/L (0-10) 03/19/22 10:00 Total Protein 7.1 g/dL (6.6-8.7) 03/19/22 10:00 Albumin 4.4 g/dL (3.5-5.2) 03/19/22 10:00 Globulin 2.7 g/dL (1.3-4.6) 03/19/22 10:00 HCG, Qual Negative (Negative) 03/19/22 10:10 Discharge Plan Discharge Patient Disposition: Home Clinical Impression: Paresthesia of right arm, Non-cardiac chest pain Condition: Stable Prescriptions: New diclofenac sodium 50 mg tablet,delayed release (DR/EC) 50 mg PO Q12H PRN (Reason: pain) Qty: 20 0RF Discontinued ibuprofen 200 mg Tablet 200 - 1,000 mg PO Q6H PRN (Reason: Pain) 0RF No Action Tylenol Ex Str Rapid Release 500 mg Tablet 500 - 1,000 mg PO Q6H PRN (Reason: Pain) 0RF Discharge Orders: Discharge ED (Routine); Ordered 03/19/22 Ordered By: Zena Landon Referrals: Yudith Quezada APN [Primary Care Provider] - Patient Instructions: Paresthesia (ED) Stand Alone Forms: Work/School Release Coding Level of Care Code ED Phlebotomy Lab Assistant for Kellyg Fwd Exam Comprehensive
[2022-03-19 10:05] VITALS: BP 138/94; PULSE 88; RESP 18; O2SAT 99
[2022-03-19 10:09] LABS: Eosinophils # 0.1 10^3/uL (0.0-0.8); Eosinophils % 0.9 %; Hematocrit 35.3 % (37.0-47.0); Hemoglobin 11.3 g/dL (11.5-15.3); Lymphocytes # 1.2 10^3/uL (0.8-4.8); Lymphocytes % 21.5 %; Mean Corpuscular Hemoglobin 26.8 pg (28.0-34.0); Mean Corpuscular Volume 83.8 fl (81-99); Mean Platelet Volume 9.6 fL (7.4-10.4); Monocytes # 0.2 10^3/uL (0.2-0.9); Monocytes % 3.7 %; Neutrophils # 3.94 10^3/uL (1.8-7.7); Neutrophils % 73.7 %; Nucleated Red Blood Cells % 0 %; Platelet Count 307 10^3/cmm (130-400); Red Blood Count 4.21 10^6/uL (4.1-5.3); Red Cell Distribution Width 14.7 % (12.1-15.1); White Blood Count 5.4 10^3/uL (4.0-10.0)
[2022-03-19 10:26] LABS: HCG, Serum Qual Negative (Negative)
[2022-03-19 10:30] LABS: Alanine Aminotransferase 7 U/L (0-33); Albumin Level 4.4 g/dL (3.5-5.2); Alkaline Phosphatase 73 IU/L (35-105); Anion Gap 12.4 (5-19); Aspartate Amino Transferase 5 U/L (0-32); Blood Urea Nitrogen 8 mg/dL (6-20); Calcium 9.1 mg/dL (8.5-10.5); Carbon Dioxide 26 mmol/L (22-29); Chloride 105 mmol/L (98-107); Globulin 2.7 g/dL (1.3-4.6); Glomerular Filtration Rate 99.6 mL/min (90-130); Glucose 93 mg/dL (65-115); Osmolality Calculated 288 mOsm/kg (285-295); Potassium 3.4 mmol/L (3.5-5.1); Sodium 140 mmol/L (136-145); Total Bilirubin 0.3 mg/dL (0.15-1.2); Total Protein 7.1 g/dL (6.6-8.7)
[2022-03-19 10:32] LABS: Troponin(5th) Baseline 6 ng/L (0-10)
--- NOTE | 2022-03-19 11:55 | ECG_ITS ---
[facility] Test Date: 2022-03-19 Pat Name: Kathleen Camilo Department: Room: Gender: Female Facsimile Machine Operator: : 1995 Requested By: Zena Landon Order Number: [id number] Belle MD: Louie Urban M.D. Measurements Intervals [place] Rate: 140 P: CA: QRS: 81 QRSD: 167 T: 96 QT: 473 QTc: 724 Interpretive Statements Sinus tachycardia INTRAVENTRICULAR CONDUCTION DELAY [130+ ms QRS DURATION] CRITICAL TEST RESULT Compared to ECG 03/19/2022 10:17:05 Sinus bradycardia no longer present Sinus arrhythmia no longer present Electronically Signed On 03-19-2022 18:56:37 CDT by Louie Urban M.D. [id number]
== END 2022-03-19 11:12 | disposition home or self-care (01) ==
PROVIDERS: Emergency Provider Physician Assistant; PCP Nurse Practitioner Family
DX: R20.0 Anesthesia of skin (principal); R07.89 Other chest pain
CPT/HCPCS: 71045; 80053; 84484; 84703; 85025; 93005; 99283

== ENCOUNTER 2022-04-19 15:07 | Emergency (ER) | payer MEDICAID, SELFPAY ==
[2022-04-19 16:53] VITALS: BP 167/108; PULSE 61; RESP 14; TEMP 37; O2SAT 99; BMI 36.2
--- NOTE | 2022-04-19 17:48 | ECG_ITS ---
[facility] Test Date: 2022-04-19 Pat Name: Kathleen Camilo Department: Room: Gender: Female Pageant Director: : 1995 Requested By: Price Araujo Order Number: [id number] Belle MD: Monica Lazar M.D. Measurements Intervals [place] Rate: 56 P: 42 DC: 147 QRS: -3 QRSD: 112 T: 29 QT: 425 QTc: 412 Interpretive Statements SINUS BRADYCARDIA WITH SINUS ARRHYTHMIA INCOMPLETE RIGHT BUNDLE BRANCH BLOCK [90+ ms QRS DURATION, TERMINAL R IN V1/V2, 40+ ms S IN I/aVL/V4/V5/V6] MODERATE VOLTAGE CRITERIA FOR LVH, CONSIDER NORMAL VARIANT [MEETS CRITERIA IN ONE OF: R(aVL), S(V1), R(V5), R(V5/V6)+S(V1)] Compared to ECG 03/19/2022 10:34:28 Incomplete right bundle-branch block now present Sinus tachycardia no longer present Intraventricular conduction delay no longer present Electronically Signed On 04-19-2022 22:59:13 CDT by Monica Lazar M.D. [email or web address] ([email or web address]) [facility] centerScooterstrihealth [facility].[email or web address]/NU/[id number] bell
== END 2022-04-19 21:42 ==
PROVIDERS: Emergency Provider Family Medicine
DX: Z53.21 Procedure and treatment not carried out due to patient leaving prior to being seen by health care provider (principal)
CPT/HCPCS: 93005; 99283

== ENCOUNTER → 2022-04-26 11:17 | Outpatient (BNVA) | payer MEDICAID, SELFPAY | PROVIDERS: Visit Provider Nurse Practitioner Family | DX: R10.32 Left lower quadrant pain (principal); F41.8 Other specified anxiety disorders; R10.12 Left upper quadrant pain; N93.9 Abnormal uterine and vaginal bleeding, unspecified; E88.81 Metabolic syndrome and other insulin resistance; I10 Essential (primary) hypertension; R10.2 Pelvic and perineal pain; R73.9 Hyperglycemia, unspecified; K57.92 Diverticulitis of intestine, part unspecified, without perforation or abscess without bleeding; M54.50 Low back pain, unspecified; G89.29 Other chronic pain | CPT/HCPCS: 80053; 80061; 83036 ==

== ENCOUNTER → 2022-07-18 10:54 | Outpatient (BNVA) | payer MEDICAID, SELFPAY | PROVIDERS: PCP Family Medicine; Visit Provider Nurse Practitioner Family | DX: Z11.3 Encounter for screening for infections with a predominantly sexual mode of transmission (principal) | CPT/HCPCS: 81003; 86592; 86695; 86696; 87491; 87591; 87661; 87806 ==

== ENCOUNTER → 2022-08-20 15:21 | Outpatient (BNVA) | payer MEDICAID, SELFPAY | PROVIDERS: PCP Family Medicine; Visit Provider Family Medicine | DX: M79.641 Pain in right hand (principal) | CPT/HCPCS: 73130 ==

== ENCOUNTER 2022-11-06 21:35 | Emergency (ER) | payer MEDICAID, SELFPAY ==
[2022-11-06 22:36] VITALS: BP 175/110; PULSE 80; RESP 18; TEMP 36.9; O2SAT 100; BMI 34.7
[2022-11-06 22:36] LABS: Basophils % 0.1 %; Eosinophils # 0.1 10^3/uL (0.0-0.8); Eosinophils % 0.9 %; Hemoglobin 12.3 g/dL (11.5-15.3); Lymphocytes # 1.8 10^3/uL (0.8-4.8); Lymphocytes % 25.4 %; Mean Corpuscular HGB Conc 33.2 g/dL (30.0-36.0); Mean Corpuscular Hemoglobin 29.4 pg (28.0-34.0); Mean Corpuscular Volume 88.5 fl (81-99); Mean Platelet Volume 9.5 fL (7.4-10.4); Monocytes # 0.4 10^3/uL (0.2-0.9); Monocytes % 6.1 %; Neutrophils # 4.63 10^3/uL (1.8-7.7); Neutrophils % 67.2 %; Nucleated Red Blood Cells % 0 %; Platelet Count 315 10^3/cmm (130-400); Red Blood Count 4.18 10^6/uL (4.1-5.3); Red Cell Distribution Width 13.4 % (12.1-15.1); White Blood Count 6.9 10^3/uL (4.0-10.0)
[2022-11-06 23:25] LABS: Alanine Aminotransferase 8 U/L (0-33); Albumin Level 4.6 g/dL (3.5-5.2); Alkaline Phosphatase 69 U/L (35-105); Anion Gap 13.5 (5-19); Aspartate Amino Transferase 5 U/L (0-32); Blood Urea Nitrogen 11 mg/dL (6-20); Calcium 8.6 mg/dL (8.5-10.5); Carbon Dioxide 26 mmol/L (22-29); Chloride 104 mmol/L (98-107); Globulin 3.2 g/dL (1.3-4.6); Glucose 83 mg/dL (65-115); Osmolality Calculated 289 mOsm/kg (285-295); Potassium 3.5 mmol/L (3.5-5.1); Sodium 140 mmol/L (136-145); Total Bilirubin 0.2 mg/dL (0.15-1.2); Total Protein 7.8 g/dL (6.6-8.7)
== END 2022-11-07 01:45 | disposition left against medical advice (07) ==
PROVIDERS: Physician Assistant; Emergency Provider Family Medicine; PCP Family Medicine
DX: Z53.21 Procedure and treatment not carried out due to patient leaving prior to being seen by health care provider (principal)
CPT/HCPCS: 80053; 85025; 99283

== ENCOUNTER → 2022-11-07 15:20 | Outpatient (BNVA) | payer MEDICAID, SELFPAY | PROVIDERS: PCP Family Medicine; Visit Provider Emergency Medicine | DX: R10.9 Unspecified abdominal pain (principal) | CPT/HCPCS: 81000 ==

== ENCOUNTER → 2023-01-07 08:30 | Outpatient (BNVA) | payer MEDICAID, SELFPAY | PROVIDERS: PCP Family Medicine; Visit Provider Nurse Practitioner Women's Health | DX: N39.0 Urinary tract infection, site not specified (principal) | CPT/HCPCS: 81000; 87086 ==

== ENCOUNTER 2023-01-30 13:02 | Emergency (ER) | payer MEDICAID, SELFPAY ==
[2023-01-30 13:03] VITALS: BP 115/77; PULSE 74; RESP 14; TEMP 36.4; O2SAT 100
--- NOTE | 2023-01-30 13:05 | ED_ITS ---
HPI - Chest Pain General: Chief Complaint: Chest Pain Stated Complaint: CHEST PAIN Time Seen by Provider: 01/30/23 13:05 History of Present Illness: Ms. Camilo is a 27-year-old lady presenting to the emergency department for evaluation of chest pain and syncope. She reports over the past 3 days having symptoms with chest heaviness in the middle of her chest radiating to the right chest and arm. She also endorses 3 episodes of syncope which typically occur with position changes and lightheadedness. She previously had an appointment and was told that she had some sort of blockage in her heart though cannot expand on this and was supposed to follow-up with cardiology. Overall course of symptoms has persisted. Intensity is moderate to severe when present. No other specific changes in health, exacerbating, or alleviating factors identified. Onset (ago): day(s) Timing of current episode: episodic Onset: during exertion Pain location: substernal Pain radiation: right arm and right shoulder Severity: moderate Quality: heaviness Exacerbating factors: exertion Associated symptoms: Reports syncope Review of Systems General: Reports: 10 or more systems reviewed and unremarkable except in HPI and below Card: Reports: syncope PFSH ED PFSH: Medical History Depression with anxiety Hypertension Metabolic syndrome PCOS (polycystic ovarian syndrome) Pharyngitis Psychiatric care Surgical History H/O laparoscopy Diagnostic laparoscopy by Dr. Ho on 07/01/18 H/O laparoscopy H/O wrist surgery tendon surgery to left wrist-2017 H/O wrist surgery History of surgical removal of ganglion cyst 11/2018--[place] Family History Grandfather Cancer Mother Hypertension Social History Smoking and tobacco status: former smoker (used to smoke off and on but not currently) Second hand smoke exposure: Yes Alcohol intake: current Alcohol intake frequency: holidays/special occasions only Caregiver/support person: Yes (family) Lives independently: Yes Household members: children Marital status: Single service: No Current occupational status: employed Current gender identity: Female Special beth needs: No Physical Exam Const: COMMON NORMALS: patient oriented x3 and alert GENERAL APPEARANCE: cooperative and well developed HENMT: COMMON NORMALS: normocephalic and atraumatic HEAD & SCALP: normocephalic and atraumatic THROAT: posterior oropharynx normal Eye: COMMON NORMALS: conjunctivae normal CONJUNCTIVA: Yes conjunctivae normal SCLERA: sclerae normal Neck/C-Spine: COMMON NORMALS: supple GENERAL: Yes trachea midline Resp: COMMON NORMALS: clear to auscultation bilaterally EFFORT & INSPECTION: Yes able to speak in complete sentences AUSCULTATION: clear to auscultation bilaterally Cardio: COMMON NORMALS: regular rate and regular rhythm RATE: regular rate RHYTHM: regular rhythm GI: COMMON NORMALS: Soft to palpation PALPATION: Yes Soft to palpation and No Tenderness to palpation present (GI) PERCUSSION: normal to percussion Extremity: GENERAL: Yes normal exam except as noted and No edema Neuro: COMMON NORMALS: patient oriented x3, CN's II-XII intact bilaterally, moves all extremities, no focal motor deficits and no sensory deficits noted SENSORIUM/ORIENTATION: Yes alert and No Orientation impaired Psych: COMMON NORMALS: mental status grossly normal and Normal thought process present THOUGHT PROCESS: Normal thought process present Course Vital Signs: Vital signs: Vital Signs Temperature 97.6 F 01/30/23 13:03 Pulse Rate 77 01/30/23 16:33 Respiratory Rate 16 01/30/23 16:33 Blood Pressure 174/95 01/30/23 16:33 Pulse Oximetry 99 01/30/23 16:33 Oxygen Delivery Me thod Room Air 01/30/23 15:30 MDM - Chest Pain Medical Decision Making 27-year-old lady presenting to the ER for chest pain. Exam as above. EKG demonstrates sinus rhythm with nonspecific interventricular conduction delay, no STEMI.. Labs with no significant hematologic or metabolic abnormalities to explain symptoms. Negative initial and delta troponin. D-dimer is negative. Squamous epithelial contamination on urinalysis. Blood level within normal range. Chest x-ray with no lobar consolidation or pneumothorax. Patient with aspirin, analgesia, GI cocktail with resolution of pain. Patient is low risk by heart score and syncope risk stratification rules. Plan for continued outpatient management. The results of ED evaluation were discussed with the patient including prescriptions and/or symptomatic cares (if applicable) including appropriate and responsible use, followup plan, and return precautions. The patient verbalized understanding and felt safe for discharge. Medical Records I reviewed the patient's medical records. Lab Data I reviewed the patient's lab results. 01/30/23 13:00 01/30/23 13:00 Radiology Impressions Chest X-Ray 01/30/23 13:13 IMPRESSION: No acute chest abnormality. Laboratory Results WBC 6.3 10^3/uL (4.0-10.0) 01/30/23 13:00 RBC 4.03 10^6/uL (4.1-5.3) L 01/30/23 13:00 Hgb 11.6 g/dL (11.5-15.3) 01/30/23 13:00 Hct 35.8 % (37.0-47.0) L 01/30/23 13:00 MCV 88.8 fl (81-99) 01/30/23 13:00 MCH 28.8 pg (28.0-34.0) 01/30/23 13:00 MCHC 32.4 g/dL (30.0-36.0) 01/30/23 13:00 RDW 14.4 % (12.1-15.1) 01/30/23 13:00 Plt Count 287 10^3/cmm (130-400) 01/30/23 13:00 MPV 9.8 fL (7.4-10.4) 01/30/23 13:00 Neut % (Auto) 73.2 % 01/30/23 13:00 Lymph % (Auto) 19.2 % 01/30/23 13:00 [place] % (Auto) 5.4 % 01/30/23 13:00 Eos % (Auto) 1.9 % 01/30/23 13:00 Baso % (Auto) 0.0 % 01/30/23 13:00 Neut # (Auto) 4.58 10^3/uL (1.8-7.7) 01/30/23 13:00 Lymph # (Auto) 1.2 10^3/uL (0.8-4.8) 01/30/23 13:00 [place] # (Auto) 0.3 10^3/uL (0.2-0.9) 01/30/23 13:00 Eos # (Auto) 0.1 10^3/uL (0.0-0.8) 01/30/23 13:00 Baso # (Auto) 0.0 10^3/uL (0.0-0.1) 01/30/23 13:00 Nucleated RBC % (auto) 0 % 01/30/23 13:00 Nucleated RBCs # 0.0 /100WBC 01/30/23 13:00 D-Dimer 0.41 ug/mIFEU (0-0.59) 01/30/23 13:00 Sodium 138 mmol/L (136-145) 01/30/23 13:00 Potassium 4.1 mmol/L (3.5-5.1) 01/30/23 13:00 Chloride 106 mmol/L (98-107) 01/30/23 13:00 Carbon Dioxide 23 mmol/L (22-29) 01/30/23 13:00 Anion Gap 13.1 (5-19) 01/30/23 13:00 BUN 12 mg/dL (6-20) 01/30/23 13:00 Creatinine 0.8 mg/dL (0.5-0.9) 01/30/23 13:00 GFR Calculation 84.8 mL/min (90-130) L 01/30/23 13:00 Glucose 73 mg/dL (65-115) 01/30/23 13:00 Calculated Osmolality 284 mOsm/kg (285-295) L 01/30/23 13:00 Calcium 8.6 mg/dL (8.5-10.5) 01/30/23 13:00 Total Bilirubin 0.2 mg/dL (0.15-1.2) 01/30/23 13:00 AST 5 U/L (0-32) 01/30/23 13:00 ALT 9 U/L (0-33) 01/30/23 13:00 Alkaline Phosphatase 66 U/L (35-105) 01/30/23 13:00 Troponin T Baseline 6 ng/L (0-10) 01/30/23 13:00 Troponin T 120 Minute 6.00 ng/L (0-10) 01/30/23 14:59 Delta Troponin T 0 ABS# (0-10) 01/30/23 14:59 NT-Pro-B Natriuret Pep 76 pg/mL (0-125) 01/30/23 13:00 Total Protein 7.3 g/dL (6.6-8.7) 01/30/23 13:00 Albumin 4.0 g/dL (3.5-5.2) 01/30/23 13:00 Globulin 3.3 g/dL (1.3-4.6) 01/30/23 13:00 Urine Color Yellow (Yellow) 01/30/23 13:46 Urine Appearance Sl hazy (CLEAR) A 01/30/23 13:46 Urine pH 7 (5-7) 01/30/23 13:46 Ur Specific [place] 1.015 (1.005-1.030) 01/30/23 13:46 Urine Protein Neg (Negative) 01/30/23 13:46 Urine Glucose (UA) Norm (Normal) 01/30/23 13:46 Urine Ketones Negative (Negative) 01/30/23 13:46 Urine Blood Neg (Negative) 01/30/23 13:46 Urine Nitrate Negative (Negative) 01/30/23 13:46 Urine Bilirubin Neg (Negative) 01/30/23 13:46 Urine Urobilinogen Norm mg/dL (Negative) 01/30/23 13:46 Ur Leukocyte Esterase Negative (Negative) 01/30/23 13:46 Urine RBC 0-4 /hpf (0-2) H 01/30/23 13:46 Urine WBC 0-4 /hpf (0-5) H 01/30/23 13:46 Ur Squamous Epith Cells 15-25 /hpf (0-5) H 01/30/23 13:46 Amorphous Sediment Not Reportable 01/30/23 13:46 Urine Bacteria 1+ /hpf (NONE) H 01/30/23 13:46 [place] 0.6 mmol/L (0.6-1.2) 01/30/23 13:00 Discharge Plan Discharge Patient Disposition: Home Clinical Impression: Chest pain, Syncope Condition: Stable Prescriptions: No Action Multi-Vitamin Tablet 2 tab PO BID naproxen 375 mg tablet 375 mg PO BID PRN (Reason: Pain) prazosin 1 mg capsule See Rx Instructions .ROUTE .COMPLEX Rx Instructions: 2 mg orally AM AND 3 MG PM ferrous sulfate 325 mg (65 mg iron) Tablet 325 mg PO QPM lithium carbonate 300 mg tablet 300 mg PO BID cyclobenzaprine 5 mg tablet 5 mg PO TID PRN (Reason: Muscle Spasm) Discharge Orders: Discharge ED (Routine); Ordered 01/30/23 Ordered By: Price Araujo Other Ambulatory Orders: ECG holter monitor 14 Days (Routine) Timeframe: 3 Days Facility: [facility] - Location: Radiology Ordered By: Price Araujo Referrals: Merry Whaley MD [Primary Care Provider] - Discharge Diet: Usual diet Discharge Activity: Increase activity as tolerated Patient Instructions: Chest Pain (ED), Syncope (ED) Activity Restrictions/Additional Instructions: Thank you for visiting the emergency department. You were seen and evaluated for chest pain and syncope. The exact cause of your symptoms is unclear though does not appear to need hospitalization at this time. You are low risk for major adverse cardiac events. I recommend continued outpatient follow-up. I will message case management to see if we can move your cardiology appointment to a sooner date, I will also order a Holter monitor and echocardiogram. Please follow-up with your primary care provider. Return to the emergency department for recurrent symptoms or anything else that you are concerned about and feel needs emergency department evaluation. Coding Level of Care Code ED Straw Hat Machine Operator for Carlos Murray
--- NOTE | 2023-01-30 13:13 | XR_ITS ---
WS: [id number] XR chest 1V portable [id number] REASON FOR EXAM: cp, syncope FINDINGS: The chest is unchanged compared to the previous examination of 03/19/2022. The heart and the mediastinum are within normal limits. Calcified granulomatous disease bilaterally. No acute or subacute pulmonary parenchymal or pleural abnormality. Bony thorax is intact without significant abnormality. XR/XR chest 1V portable [id number] IMPRESSION: No acute chest abnormality.
--- NOTE | 2023-01-30 13:13 | ECG_ITS ---
[facility] Test Date: 2023-01-30 Pat Name: Kathleen Camilo Department: Room: Gender: Female Interstate Planner: : 1995 Requested By: Price Araujo Order Number: [id number] Belle MD: Jose Sky M.D. Measurements Intervals [place] Rate: 65 P: 115 DE: 161 QRS: 7 QRSD: 121 T: 33 QT: 396 QTc: 413 Interpretive Statements SINUS RHYTHM POSSIBLE RIGHT VENTRICULAR CONDUCTION DELAY [RSR (QR) IN V1/V2] Compared to ECG 04/19/2022 17:02:16 Sinus bradycardia no longer present Sinus arrhythmia no longer present Incomplete right bundle-branch block no longer present Electronically Signed On 01-30-2023 16:31:26 CDT by Jose Sky M.D. [email or web address] [email or web address] [email or web address]/store/[id number]
[2023-01-30 13:15] VITALS: BP 126/89; BP 128/86; BP 134/88; PULSE 66; PULSE 69; PULSE 78
--- NOTE | 2023-01-30 13:15 | PC.NURSE ---
Pt on bedside blindmaker
--- NOTE | 2023-01-30 13:23 | PC.NURSE ---
Aspirin not given here per verbal order from Dr Araujo as pt was given aspirin by EMS
[2023-01-30 13:24] LABS: Eosinophils # 0.1 10^3/uL (0.0-0.8); Eosinophils % 1.9 %; Hematocrit 35.8 % (37.0-47.0); Hemoglobin 11.6 g/dL (11.5-15.3); Lymphocytes # 1.2 10^3/uL (0.8-4.8); Lymphocytes % 19.2 %; Mean Corpuscular HGB Conc 32.4 g/dL (30.0-36.0); Mean Corpuscular Hemoglobin 28.8 pg (28.0-34.0); Mean Corpuscular Volume 88.8 fl (81-99); Mean Platelet Volume 9.8 fL (7.4-10.4); Monocytes # 0.3 10^3/uL (0.2-0.9); Monocytes % 5.4 %; Neutrophils # 4.58 10^3/uL (1.8-7.7); Neutrophils % 73.2 %; Nucleated Red Blood Cells % 0 %; Platelet Count 287 10^3/cmm (130-400); Red Blood Count 4.03 10^6/uL (4.1-5.3); Red Cell Distribution Width 14.4 % (12.1-15.1); White Blood Count 6.3 10^3/uL (4.0-10.0)
[2023-01-30 13:39] LABS: D Dimer 0.41 ug/mIFEU (0-0.59)
[2023-01-30 13:53] LABS: Alanine Aminotransferase 9 U/L (0-33); Alkaline Phosphatase 66 U/L (35-105); Anion Gap 13.1 (5-19); Aspartate Amino Transferase 5 U/L (0-32); Blood Urea Nitrogen 12 mg/dL (6-20); Calcium 8.6 mg/dL (8.5-10.5); Carbon Dioxide 23 mmol/L (22-29); Chloride 106 mmol/L (98-107); Globulin 3.3 g/dL (1.3-4.6); Glomerular Filtration Rate 84.8 mL/min (90-130); Glucose 73 mg/dL (65-115); NT Pro B Type Natriuretic Pept 76 pg/mL (0-125); Osmolality Calculated 284 mOsm/kg (285-295); Potassium 4.1 mmol/L (3.5-5.1); Sodium 138 mmol/L (136-145); Total Bilirubin 0.2 mg/dL (0.15-1.2); Total Protein 7.3 g/dL (6.6-8.7)
[2023-01-30 13:55] LABS: Troponin(5th) Baseline 6 ng/L (0-10)
[2023-01-30 14:00] VITALS: BP 120/90; PULSE 73; RESP 14; O2SAT 99
[2023-01-30] MEDS: morphine 4 mg/mL SDV 1 mL IVP (14:01)
[2023-01-30 14:14] LABS: Add Urine Microscopic? YES; Bilirubin Urine Neg (Negative); Blood Urine Neg (Negative); Glucose Urine UA Norm (Normal); Ketones Urine Negative (Negative); Leukocyte Esterase Urine Negative (Negative); Nitrate Urine Negative (Negative); Protein Urine Neg (Negative); Specific Gravity, Urine 1.015 (1.005-1.030); Urine Appearance SL Hazy (CLEAR); Urine Color Yellow (Yellow); Urobilinogen Urine Norm (Negative); pH Urine 7 (5-7)
[2023-01-30 14:15] LABS: Bacteria Urine 1+ /hpf; RBC Urine 0-4 /hpf (0-2); Squamous Epithelial Cell Urine 15-25 /hpf (0-5); WBC Urine 0-4 /hpf (0-5)
--- NOTE | 2023-01-30 15:01 | PC.NURSE ---
Pt declined GI cocktail and toradol at this time, states she is not having any pain. Instructed pt to call if pain returns, she verbalized understanding. Call light within reach, female visitor at bedside
--- NOTE | 2023-01-30 15:13 | ECG_ITS ---
[facility] Test Date: 2023-01-30 Pat Name: Kathleen Camilo Department: Room: Gender: Female Clinical Support Manager: : 1995 Requested By: Price Araujo Order Number: [id number] Belle MD: Jose Sky M.D. Measurements Intervals [place] Rate: 64 P: 0 MO: 0 QRS: 6 QRSD: 106 T: 16 QT: 400 QTc: 415 Interpretive Statements ATRIAL FIBRILLATION POSSIBLE RIGHT VENTRICULAR CONDUCTION DELAY [RSR (QR) IN V1/V2] Compared to ECG 01/30/2023 13:22:49 Sinus rhythm no longer present Electronically Signed On 01-30-2023 16:41:29 CDT by Jose Sky M.D. [email or web address] [facility] [email or web address].[email or web address]/store/OM/[id number]
[2023-01-30 15:30] VITALS: BP 126/82; PULSE 68; RESP 16; O2SAT 99
[2023-01-30 15:31] LABS: Lithium 0.6 mmol/L (0.6-1.2)
[2023-01-30 16:15] LABS: Troponin 5 2HR Delta 0 ABS# (0-10)
[2023-01-30 16:33] VITALS: BP 174/95; PULSE 77; RESP 16; O2SAT 99
--- NOTE | 2023-01-31 10:37 | DCPLANNER ---
Addendum entered by Tiffany Burk 02/27/23 09:32: Patient had a follow up appointment scheduled with [facility] - patient did attend appointment Patient had an outpatient echo scheduled - patient did attend appointment Addendum entered by Tiffany Burk 02/06/23 08:05: Patient has a follow up appointment scheduled for Sunday, February 12, 2023 at 10:00 at [facility] for a 48 hour halter monitor. Addendum entered by Tiffany Burk 02/03/23 08:44: self storage manager also had an order for a 48 hour halter monitor for patient. self storage manager faxed a signed order to [facility], who will call patient with appointment information. Original Note: self storage manager had message to schedule a follow up appointment for patient with cardiology. self storage manager sent patients information to the front office staff at [facility]. Patients information will be printed and reviewed. Clinic will call patient with appointment information. self storage manager also had message to schedule an outpatient echo cardiogram for patient. self storage manager faxed signed order to centralized scheduling, who will call patient with appointment information.
== END 2023-01-30 16:34 | disposition home or self-care (01) ==
PROVIDERS: Emergency Provider Emergency Medicine; PCP Family Medicine
DX: R07.9 Chest pain, unspecified (principal); R55 Syncope and collapse; I10 Essential (primary) hypertension; Z87.891 Personal history of nicotine dependence
CPT/HCPCS: 71045; 80053; 80178; 81001; 83880; 84484; 85025; 85378; 93005; 96374; 99285; J2270

== ENCOUNTER 2023-02-24 10:30 | Outpatient (CLI) | payer MEDICAID, SELFPAY ==
--- NOTE | 2023-02-24 10:37 | USCV_ITS ---
Kathleen Camilo Age: 27 Gender: F : 1995 Exam Date: 02/24/2023 10:57 Ordering Phys: Price Araujo MD Technologist: Marco A Leiva Exam Location: [facility] [place] Indication: chest pain, syncope, abnormal ekg BP: 140 / 92 HR: 75 Rhythm: Sinus Technical Quality: Adequate MEASUREMENTS (Male / Female) Normal Values 2D ECHO LVOT Diameter 2.0 cm LV Ejection Fraction MOD 2C 65.5 % LV Ejection Fraction 2C AL 65.3 % LA Diameter 3.4 cm LA Width 4.2 cm LA Height 4.7 cm RA Width 3.9 cm RA Height 5.0 cm Aorta at Sinotubular Diameter 2.5 cm IVC Diameter 1.4 cm M-MODE Aortic Annulus Diameter 3.1 cm LA Ao Ratio MM 1.1 MV E Point Septal Separation 0.5 cm DOPPLER AV Peak Velocity 161.0 cm/s LVOT Peak Velocity 132.0 cm/s AV Area Cont Eq vti 2.2 cm squared AV Area Cont Eq pk 2.6 cm squared MV Peak Velocity 120.0 cm/s MV Area PHT 4.8 cm squared Mitral E to A Ratio 2.0 MV E' Velocity 71.0 cm/s Mitral E to MV E' Ratio 9.7 Mitral E to LV E' Lateral Ratio 7.9 Mitral E to LV E' Septal Ratio 12.6 TR Peak Velocity 391.6 cm/s TR Peak Gradient 61.3 mmHg TR Mean Velocity 321.7 cm/s TR Mean Gradient 47.6 mmHg TR Velocity Time Integral 112.5 cm Right Atrial Pressure 3.0 mmHg Pulmonary Artery Systolic Pressu 64.3 mmHg PV Peak Velocity 104.3 cm/s RV Acceleration Time 0.2 s RV Ejection Time 0.3 s RV AcT/ET 0.6 FINDINGS Left Ventricle Normal left ventricular size and systolic function, EF 65 %. No regional wall motion abnormalities. Right Ventricle The right ventricle is normal in size and function. Right Atrium The right atrium is normal in size. Left Atrium The left atrium is normal in size. Mitral Valve Trace mitral valve regurgitation. Aortic Valve No gross abnormalities noted Tricuspid Valve Mild tricuspid valve regurgitation. Estimated pulmonary artery peak systolic pressure of 64 mmHg with a mean pressure of 45 mmHg Pulmonic Valve Trace pulmonary valve regurgitation. Pericardium No pericardial effusion. Aorta Normal ascending aorta dimension. IVC The inferior vena cava appears normal. CONCLUSIONS Normal left ventricular size and systolic function, EF 65 %. No regional wall motion abnormalities. Mild tricuspid valve regurgitation. Estimated pulmonary artery peak systolic pressure of 64 mmHg with a mean pressure of 45 mmHg.-Suggesting severe pulmonary hypertension. The right ventricular appears to be of normal size and ejection fraction. Trace mitral valve regurgitation. There is no pericardial effusion. There are no intracardiac masses. No similar previous studies are available for comparison Dr Louie Urban MD [facility] (Electronically Signed) Final Date: 26 Feb 2023 01:44 S
== END 2023-02-24 10:31 | disposition home or self-care (01) ==
LOC: RAD 10:32
PROVIDERS: PCP Family Medicine; Visit Provider Emergency Medicine
DX: I34.0 Nonrheumatic mitral (valve) insufficiency (principal); R07.9 Chest pain, unspecified; R55 Syncope and collapse
CPT/HCPCS: 93306

== ENCOUNTER → 2023-05-20 12:27 | Outpatient (BNVA) | payer MEDICAID, SELFPAY | PROVIDERS: PCP Nurse Practitioner Family; Visit Provider Internal Medicine Cardiovascular Disease | DX: R06.02 Shortness of breath (principal); I27.20 Pulmonary hypertension, unspecified; Z79.01 Long term (current) use of anticoagulants | CPT/HCPCS: 36415; 80048; 83880; 85025; 85378 ==

== ENCOUNTER → 2023-06-05 11:55 | Outpatient (BNVA) | payer MEDICAID, SELFPAY | PROVIDERS: PCP Nurse Practitioner Family; Visit Provider Nurse Practitioner Family | DX: I20.8 Other forms of angina pectoris (principal); R06.02 Shortness of breath | CPT/HCPCS: 93005 ==

== ENCOUNTER 2023-08-06 19:26 | Emergency (ER) | payer MEDICAID, SELFPAY ==
[2023-08-06 19:27] VITALS: BP 144/94; PULSE 67; RESP 17; TEMP 36.6; O2SAT 100; BMI 39.9
--- NOTE | 2023-08-06 19:37 | XRR_ITS ---
PROCEDURE INFORMATION: Exam: XR Chest Exam date and time: 08/06/2023 8:33 PM Age: 27 years old Clinical indication: Left-sided; Patient HX: Chest pain; Middle to L -side TECHNIQUE: Imaging protocol: Radiologic exam of the chest. Views: 1 view. COMPARISON: CR XR chest 1V portable [id number] 01/30/2023 1:29 PM FINDINGS: Lungs: Unremarkable. No consolidation. Pleural spaces: Unremarkable. No pleural effusion. No pneumothorax. Heart/Mediastinum: Unremarkable. No cardiomegaly. Bones/joints: Unremarkable. XR/XR chest 1V portable [id number] IMPRESSION: No acute findings.
[2023-08-06 19:54] LABS: Basophils % 0.1 %; Eosinophils # 0.1 10^3/uL (0.0-0.8); Eosinophils % 1.9 %; Hematocrit 37.1 % (36-47); Lymphocytes # 2.1 10^3/uL (0.8-4.8); Lymphocytes % 30.9 %; Mean Corpuscular HGB Conc 34.8 g/dL (30-55); Mean Corpuscular Hemoglobin 31.2 pg (27-33); Mean Corpuscular Volume 89.6 fl (85-98); Mean Platelet Volume 9.2 fL (7.4-10.4); Monocytes # 0.4 10^3/uL (0.2-0.9); Monocytes % 5.5 %; Neutrophils # 4.12 10^3/uL (1.8-7.7); Neutrophils % 61.3 %; Nucleated Red Blood Cells % 0 %; Platelet Count 289 10^3/cmm (157-399); Red Blood Count 4.14 10^6/uL (3.85-5.65); Red Cell Distribution Width 13.2 % (12.1-15.1); White Blood Count 6.73 10^3/uL (3.29-11.43)
[2023-08-06 20:11] LABS: Troponin(5th) Baseline < 6 ng/L (0-10)
[2023-08-06 20:15] LABS: Alanine Aminotransferase 11 U/L (0-33); Albumin Level 4.5 g/dL (3.5-5.2); Alkaline Phosphatase 65 U/L (35-105); Anion Gap 13.1 (5-19); Aspartate Amino Transferase 6 U/L (0-32); Blood Urea Nitrogen 12 mg/dL (6-20); Calcium 8.9 mg/dL (8.5-10.5); Carbon Dioxide 27 mmol/L (22-29); Chloride 102 mmol/L (98-107); Globulin 2.9 g/dL (1.3-4.6); Glomerular Filtration Rate 84.8 mL/min (90-130); Glucose 73 mg/dL (65-115); Osmolality Calculated 284 mOsm/kg (285-295); Potassium 4.1 mmol/L (3.5-5.1); Sodium 138 mmol/L (136-145); Total Bilirubin 0.2 mg/dL (0.15-1.2); Total Protein 7.4 g/dL (6.6-8.7)
[2023-08-06 20:29] VITALS: PULSE 78; RESP 16; O2SAT 99
--- NOTE | 2023-08-06 20:43 | ED_ITS ---
HPI - Chest Pain General: Chief Complaint: Chest Pain Stated Complaint: chest pains Time Seen by Provider: 08/06/23 20:24 History of Present Illness: Patient presents to the ER with complaints of substernal chest pain that sharp radiating and reproducible. Patient has also had episodes of nausea and syncope x1. Her chest pain and nausea has been going off and on since yesterday. Pain does not radiate. Patient has had this pain before and has also had syncope before. Patient used to see a electrical technology instructor here but since her insurance changed has not been able to see them. Patient is pain-free and has no complaints at the moment. Review of Systems General: Reports: 10 or more systems reviewed and unremarkable except in HPI and below PFSH ED PFSH: Medical History Depression with anxiety Hypertension Metabolic syndrome PCOS (polycystic ovarian syndrome) Pharyngitis Psychiatric care Surgical History H/O laparoscopy Diagnostic laparoscopy by Dr. Ho on 07/01/18 H/O laparoscopy H/O wrist surgery tendon surgery to left wrist-2017 H/O wrist surgery History of surgical removal of ganglion cyst 11/2018--[place] Family History Grandfather Cancer Mother Hypertension Social History Smoking and tobacco/nicotine status: former use of tobacco/nicotine (used to smoke off and on but not currently) Second hand smoke exposure: Yes Alcohol intake: current Alcohol intake frequency: holidays/special occasions only Substance/Drug Use: never Caregiver/support person: Yes (family) Lives independently: Yes Household members: children Marital status: Single service: No Current occupational status: employed Current gender identity: Female Special beth needs: No Physical Exam Const: COMMON NORMALS: no acute distress, average body habitus, patient oriented x3, no limitations, healthy appearing, alert and well nourished HENMT: COMMON NORMALS: normocephalic, atraumatic, hearing grossly normal bilaterally, external ears normal, Normal external nose present, moist oral mucous membranes and oropharynx normal HEAD & SCALP: normocephalic and atraumatic NOSE: Normal external nose present EXTERNAL EAR: Yes external ears normal Eye: COMMON NORMALS: Equal, round and reactive pupils present, EOMs intact bilaterally, conjunctivae normal and no scleral icterus CONJUNCTIVA: Yes conjunctivae normal PUPIL: Yes Equal, round and reactive pupils present Neck/C-Spine: COMMON NORMALS: full ROM, no lymphadenopathy, no meningeal signs, no JVD and Thyroid normal THYROID: Thyroid normal Lymph: LYMPHATIC: no lymphadenopathy noted Chest: COMMONS NORMALS: normal inspection of the chest; negative for normal palpation of entire chest wall (Palpation of the chest repro duces patient's chest pain.) Resp: COMMON NORMALS: normal respiratory effort, No retractions, No use of accessory muscles and clear to auscultation bilaterally AUSCULTATION: clear to auscultation bilaterally Cardio: COMMON NORMALS: no JVD, regular rate, regular rhythm, S1 normal heart sound present, S2 normal heart sound present, No gallops present (Cardio), No c licks present (Cardio), No murmurs present (Cardio) and No rub (Cardio) RATE: regular rate RHYTHM: regular rhythm HEART SOUNDS: S1 normal heart sound present and S2 normal heart sound present GI: COMMON NORMALS: Normal to inspection, nondistended, normoactive bowel sounds present, Soft to palpation, non-tender, No hepatosplenomegaly present and no masses PALPATION: Yes Soft to palpation and Yes No hepatosplenomegaly present : COMMON NORMALS: Yes no CVA tenderness BLADDER/KIDNEY EXAM: Yes no CVA tenderness Back/Pelvis: COMMON NORMALS: no CVA tenderness Neuro: COMMON NORMALS: patient oriented x3 SENSORIUM/ORIENTATION: Yes alert MENINGEAL SIGNS: Yes no meningeal signs Course Vital Signs: Vital signs: Vital Signs Temperature 98 F 08/06/23 19:27 Pulse Rate 78 08/06/23 20:29 Respiratory Rate 16 08/06/23 20:29 Blood Pressure 144/94 08/06/23 19:27 Pulse Oximetry 99 08/06/23 20:29 Oxygen Delivery Me thod Room Air 08/06/23 20:29 MDM - Chest Pain Medical Decision Making Patient presents to the ER with complaints of chest pain lab work was obtained for the first time all of which was essentially benign. But waiting for the second set of cardiac enzymes patient decided she wanted to leave AGAINST MEDICAL ADVICE. Differential Diagnosis Unlikely acute massive pulmonary embolism, acute respiratory failure, acute myocardial infarction, cardiac arrest or sudden cardiac Medical Records I reviewed the patient's medical records. Lab Data I reviewed the patient's lab results. 08/06/23 19:48 08/06/23 19:48 Laboratory Results WBC 6.73 10^3/uL (3.29-11.43) 08/06/23 19:48 RBC 4.14 10^6/uL (3.85-5.65) 08/06/23 19:48 Hgb 12.90 g/dL (11.27-16.99) 08/06/23 19:48 Hct 37.1 % (36-47) 08/06/23 19:48 MCV 89.6 fl (85-98) 08/06/23 19:48 MCH 31.2 pg (27-33) 08/06/23 19:48 MCHC 34.8 g/dL (30-55) 08/06/23 19:48 RDW 13.2 % (12.1-15.1) 08/06/23 19:48 Plt Count 289 10^3/cmm (157-399) 08/06/23 19:48 MPV 9.2 fL (7.4-10.4) 08/06/23 19:48 Neut % (Auto) 61.3 % 08/06/23 19:48 Lymph % (Auto) 30.9 % 08/06/23 19:48 [place] % (Auto) 5.5 % 08/06/23 19:48 Eos % (Auto) 1.9 % 08/06/23 19:48 Baso % (Auto) 0.1 % 08/06/23 19:48 Neut # (Auto) 4.12 10^3/uL (1.8-7.7) 08/06/23 19:48 Lymph # (Auto) 2.1 10^3/uL (0.8-4.8) 08/06/23 19:48 [place] # (Auto) 0.4 10^3/uL (0.2-0.9) 08/06/23 19:48 Eos # (Auto) 0.1 10^3/uL (0.0-0.8) 08/06/23 19:48 Baso # (Auto) 0.0 10^3/uL (0.0-0.1) 08/06/23 19:48 Nucleated RBC % (auto) 0 % 08/06/23 19:48 Nucleated RBCs # 0.0 /100WBC 08/06/23 19:48 Sodium 138 mmol/L (136-145) 08/06/23 19:48 Potassium 4.1 mmol/L (3.5-5.1) 08/06/23 19:48 Chloride 102 mmol/L (98-107) 08/06/23 19:48 Carbon Dioxide 27 mmol/L (22-29) 08/06/23 19:48 Anion Gap 13.1 (5-19) 08/06/23 19:48 BUN 12 mg/dL (6-20) 08/06/23 19:48 Creatinine 0.8 mg/dL (0.5-0.9) 08/06/23 19:48 GFR Calculation 84.8 mL/min (90-130) L 08/06/23 19:48 Glucose 73 mg/dL (65-115) 08/06/23 19:48 Calculated Osmolality 284 mOsm/kg (285-295) L 08/06/23 19:48 Calcium 8.9 mg/dL (8.5-10.5) 08/06/23 19:48 Total Bilirubin 0.2 mg/dL (0.15-1.2) 08/06/23 19:48 AST 6 U/L (0-32) 08/06/23 19:48 ALT 11 U/L (0-33) 08/06/23 19:48 Alkaline Phosphatase 65 U/L (35-105) 08/06/23 19:48 Troponin T Baseline < 6 ng/L (0-10) 08/06/23 19:48 Total Protein 7.4 g/dL (6.6-8.7) 08/06/23 19:48 Albumin 4.5 g/dL (3.5-5.2) 08/06/23 19:48 Globulin 2.9 g/dL (1.3-4.6) 08/06/23 19:48 All radiology interpretation(s) finalized by discharge EKG Data EKG 1: I personally reviewed and interpreted this EKG as follows: EKG interpretation date: 08/06/23 EKG interpretation time: 19:31 Prior EKG tracings: not available for review Interpretation: EKG shows ventricular rate 78 beats minute, NH interval 141, QRS duration 105, QTc of 405, sinus rhythm with sinus arrhythmia, incomplete right bundle branch block Discharge Plan Discharge Patient Disposition: Home Clinical Impression: Left against medical advice Condition: Stable Prescriptions: No Action No Known Home Medications Discharge Orders: Discharge ED (Routine); Ordered 08/06/23 Ordered By: James Omalley Referrals: Sonali Nielsen FNP [Primary Care Provider] - Patient Instructions: Against Medical Advice (ED) Coding Level of Care Code ED Electrical Laboratory Technician for Carlos Murray
--- NOTE | 2023-08-06 21:38 | ECG_ITS ---
[facility] Test Date: 2023-08-06 Pat Name: Kathleen Camilo Department: Room: Gender: Female Carton Packaging Machine Operator: : 1995 Requested By: James Omalley Order Number: [id number] Barbra MD: Louie Urban M.D. Measurements Intervals [place] Rate: 69 P: 59 NH: 154 QRS: -5 QRSD: 112 T: 39 QT: 389 QTc: 418 Interpretive Statements SINUS RHYTHM WITH SINUS ARRHYTHMIA POSSIBLE RIGHT VENTRICULAR CONDUCTION DELAY [RSR (QR) IN V1/V2] Compared to ECG 01/30/2023 15:32:38 Atrial fibrillation no longer present Electronically Signed On 08-07-2023 21:37:18 CDT by Louie Urban M.D. [id number]
--- NOTE | 2023-08-06 22:16 | PC.NURSE ---
Patient left AMA. Patient was educated on the risks of leaving against medical advice and patient verbalized understanding. Dr Omalley was informed of patient decision. Patient left with all belongings and signed AMA paper.
[2023-08-06 23:06] LABS: Troponin 5 2HR Delta 0.00001 ABS# (0-10)
== END 2023-08-06 22:17 | disposition home or self-care (01) ==
PROVIDERS: Emergency Provider Emergency Medicine; PCP Nurse Practitioner Family
DX: R07.9 Chest pain, unspecified (principal); Z53.21 Procedure and treatment not carried out due to patient leaving prior to being seen by health care provider; Z87.891 Personal history of nicotine dependence; I10 Essential (primary) hypertension
CPT/HCPCS: 36415; 71045; 80053; 84484; 85025; 93005; 99285

== ENCOUNTER → 2024-11-23 11:59 | Outpatient (BNVA) | payer MEDICAID, SELFPAY | PROVIDERS: PCP Nurse Practitioner Family; Visit Provider Nurse Practitioner Family | DX: L98.9 Disorder of the skin and subcutaneous tissue, unspecified (principal) | CPT/HCPCS: 80053; 80061; 84443; 85025 ==

== ENCOUNTER 2025-07-22 23:11 | Emergency (ER) | payer BC, MEDICAID, SELFPAY ==
[2025-07-22 23:55] VITALS: BP 157/100; PULSE 69; RESP 18; TEMP 36.6; O2SAT 100; BMI 39.3
--- NOTE | 2025-07-23 00:21 | XRR_ITS ---
PROCEDURE INFORMATION: Exam: XR Lumbosacral Spine Exam date and time: 07/23/2025 12:26 AM Age: 29 years old Clinical indication: Patient sustained a fall landing on back. C/O RT sided low back pain. ; Additional info: Fall R low back pain TECHNIQUE: Imaging protocol: Radiologic exam of the lumbosacral spine. Views: 2 or 3 views. COMPARISON: CR XR lumbar spine 2-3V* [id number] 02/21/2022 1:51 PM FINDINGS: Bones/joints: No radiographic evidence of acute fracture. The anterior posterior vertebral body lines are intact with straightening of the normal lumbar lordosis. No scoliosis. Soft tissues: No acute abnormality. XR/XR lumbar spine 2-3V* [id number] IMPRESSION: No acute abnormality.
--- NOTE | 2025-07-23 00:24 | ED_ITS ---
HPI - Back Pain/Injury General: Chief Complaint: Back Pain/Injury Stated Complaint: fall shooting pain in back and Right leg Time Seen by Provider: 07/22/25 23:46 History of Present Illness: Patient is a 29-year-old female who presents to the emergency department with acute low back pain after falling down three steps approximately 5:30 PM today. She reports landing on the middle of her back against the steps. She describes pain straight across her lower back with radiation of sharp pain down her right leg to her foot when walking. Patient denies any prior significant back problems. 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 She denies urinary symptoms, loss of bowel/bladder control, or numbness in the groin area. Patient reports the pain is primarily with movement, particularly when walking or bending over. She also notes discomfort when lying down. Related Data Previous Rx's ?Medication ?Instructions ?Recorded lisinopril 20 mg tablet 20 mg PO DAILY #30 tabs 10/28 06/20 amoxicillin 875 mg-potassium 1 tab PO BID #20 tabs clavulanate 125 mg tablet hydrocodone 5 mg-acetaminophen 325 1 tab PO Q8H PRN pa in #7 tabs 07/23/25 mg tablet methylprednisolone 4 mg tablets in See Rx Instructions PO .COMPLEX 07/23/25 a dose pack (Medrol (Jose Cruz)) #21 ea Allergies Allergy/AdvReac Type Severity Reaction Status Date / Time sulfamethoxazole (From Allergy Diana Verified 02/08/25 09:55 Bactrim) Lip/Tongue/Throat trimethoprim (From Bactrim) Allergy CHRISTOPHER-Glenda Verified 02/08/25 09:55 Lip/Tongue/Throat [facility] ED PFSH: Medical History (Updated 07/23/25 @ 01:04 by Gentry Peter DO) Pharyngitis Hypertension PCOS (polycystic ovarian syndrome) Metabolic syndrome Depression with anxiety Surgical History H/O wrist surgery H/O laparoscopy History of surgical removal of ganglion cyst 11/2018--[place] H/O wrist surgery tendon surgery to left wrist-2017 H/O laparoscopy Diagnostic laparoscopy by Dr. Ho on 07/01/18 Family History Grandfather Cancer Mother Hypertension Social History Smoking and tobacco/nicotine status: current every day tobacco/nicotine user Second hand smoke exposure: Yes Alcohol intake: current Alcohol intake frequency: holidays/special occasions only Substance/Drug Use: never Caregiver/support person: Yes (family) Lives independently: Yes Household members: children Marital status: Single service: No Current occupational status: employed Current gender identity: Female Special beth needs: No Physical Exam Const: COMMON NORMALS: no acute distress GENERAL APPEARANCE: cooperative; not ill appearing and not frail appearing Eye: COMMON NORMALS: Equal, round and reactive pupils present and EOMs intact bilaterally PUPIL: Yes Equal, round and reactive pupils present Neck/C-Spine: GENERAL: Yes trachea midline Chest: CHEST: Yes Symmetrical chest wall rise Resp: COMMON NORMALS: normal respiratory effort, No retractions, No use of accessory muscles and clear to auscultation bilaterally AUSCULTATION: clear to auscultation bilaterally Cardio: COMMON NORMALS: regular rate and regular rhythm RATE: regular rate RHYTHM: regular rhythm Back/Pelvis: OTHER: Examination of the lumbar spine reveals diffuse tenderness along the mid to upper lumbar area. She is tender on the right and the left. Some midline tenderness. No deformity. Straight leg raise test is negative for radicular pain. Strength is intact with dorsiflexion plantarflexion knee extension. Extremity: COMMON NORMALS: no pedal edema Neuro: LO COMA SCALE: document GCS findings Lo coma scale eye opening: Spontaneous Lo coma scale verbal response: Orientated [place] coma scale motor response: Obey commands Lo coma scale total score: 15 SENSORY EXAM: Yes extremities (intact) Psych: COMMON NORMALS: speech normal SPEECH: Yes normal speech Course Vital Signs: Vital signs: Vital Signs Temperature 97.8 F 07/22/25 23:55 Pulse Rate 81 07/23/25 01:17 Respiratory Rate 18 07/23/25 01:17 Blood Pressure 157/100 07/22/25 23:55 Pulse Oximetry 100 07/23/25 01:17 MDM - Back Pain/Injury Medical Decision Making X-ray reveals no acute definite fracture. No significant displaced narrowing. Pain is improved. Short course pain medication, with steroid taper. Outpatient follow-up. Return for new or worse symptoms. Labs Radiology Impressions Lumbar Spine X-Ray 07/23/25 00:21 IMPRESSION: No acute abnormality. All radiology interpretation(s) finalized by discharge Discharge Plan Discharge Patient Disposition: Home Clinical Impression: Lumbar radiculopathy, right Condition: Stable Prescriptions: New hydrocodone-acetaminophen 5-325 mg tablet 1 tab PO Q8H PRN (Reason: pain) Qty: 7 0RF methylprednisolone [Medrol (Jose Cruz)] 4 mg tablets,dose pack See Rx Instructions .ROUTE .COMPLEX Qty: 21 0RF Rx Instructions: orally per package directions No Action amoxicillin-pot clavulanate 875-125 mg tablet 1 tab PO BID Qty: 20 0RF lisinopril 20 mg tablet 20 mg PO DAILY Qty: 30 5RF Discharge Orders: Discharge ED (Routine); Ordered 07/23/25 Ordered By: Gentry Peter Referrals: Sonali Nielsen FNP [Primary Care Provider, Family Practice] - 1-3 days Patient Instructions: Lumbar Radiculopathy (ED), Opioid Safety, Pain Management, Patient Portal & Nathaniel Instructions Activity Restrictions/Additional Instructions: X-rays of your back did not reveal any fracture or significant disc space problem. You are however having pain in your back and down your right leg likely related to an irritated nerve in your back. Steroid should help with this. Short course of pain medication can help with symptoms. Call your doctor on Friday for a follow-up appointment. Further treatment may be necessary. Stand Alone Forms: Work/School Release Print Language: Divehi Coding Level of Care Code ED Provider Relations Consultant for Carlos Murray
[2025-07-23] MEDS: oxyCODONE-APAP 5-325 mg Tablet 2 TAB PO (00:39)
[2025-07-23 01:17] VITALS: PULSE 81; RESP 18; O2SAT 100
== END 2025-07-23 01:19 | disposition home or self-care (01) ==
PROVIDERS: Emergency Provider Emergency Medicine; PCP Nurse Practitioner Family
DX: M54.16 Radiculopathy, lumbar region (principal); Z72.0 Tobacco use; I10 Essential (primary) hypertension
CPT/HCPCS: 72100; 96372; 99284; J1885; J9999

== ENCOUNTER → 2025-08-23 10:39 | Outpatient (BNVA) | payer BC, MEDICAID, SELFPAY | PROVIDERS: PCP Nurse Practitioner Family; Visit Provider Nurse Practitioner Family | DX: M25.531 Pain in right wrist (principal); S69.91XA Unspecified injury of right wrist, hand and finger(s), initial encounter; X58.XXXA Exposure to other specified factors, initial encounter | CPT/HCPCS: 73110 ==